=== PATIENT | male | born 1970 | race Caucasian/White ===

== ENCOUNTER 2023-08-28 18:58 | Inpatient (IN) | payer BC, SELFPAY ==
[2023-08-28] VITALS (11 sets, daily range): BP systolic 102–166; BP diastolic 68–93; BMI 24.3; BMI 23.9
--- NOTE | 2023-08-28 12:57 | ED.GENMED ---
History of Present Illness
<PEGGY Hernandez Jr. Last Filed: 08/31/23 11:22>
General
Chief Complaint: Withdrawal Symptoms
Source: patient, spouse and family
Exam Limitations: none
Time Seen by Provider: 08/28/23 12:53
Nursing documentation reviewed up to this point in time: agreed with
Travel History
Have you had any contact with someone who has COVID-19?: No
Do you have any symptoms of coronavirus? Fever > 100 degrees, chills, cough, shortness of breath, sore throat, loss of taste or smell, muscle aches, or headache?: No
History of Present Illness
History of Present Illness:
53-year-old male with past medical history of alcohol abuse and anxiety, previous GI bleed previous seizures related to alcohol withdrawal and DTs presenting to the emergency department today with concerns of alcohol withdrawal he has been
decreasing alcohol intake over the past few days has noticed nausea headache fatigue body aches over the past few days. Denies any specific chest pain shortness of breath
Past History
<PEGGY Hernandez Jr. Last Filed: 08/31/23 11:22>
Past History
ED Past Medical History: Seizures, Psychiatric and Other (Alcohol abuse, kidney stones, GI bleed)
ED Past Surgical History: None
Patient has exhibited threatening behavior?: No
PSI?: No
Social History
Tobacco: Non-smoker
Alcohol: Chronic alcoholic
Drug: None
Personal:
Living: with family
Family History
Family History: Negative Early CAD
Review of Systems
<PEGGY Hernandez Jr. Filed: 08/31/23 11:22>
Review of Systems
Allergies reviewed?: Yes
All Other Systems: ROS reviewed and negative except as documented in HPI and ROS
Phy Exam
<PEGGY Hernandez Jr. Last Filed: 08/31/23 11:22>
Physical Exam
Physical Exam:
GENERAL: Alert , seems mildly uncomfortable
EYE: pupils equal and reactive
NECK: Supple, no significant adenopathy.
ENT: o/p clr, mmm.
CARDIAC: Tachycardic rate regular
LUNGS: Clear breath sounds bilaterally, no acute respiratory distress, no wheezes/rales/rhonchi
ABDOMEN: Soft, without focal tenderness, no r/g, no cvat
NEUROLOGICAL: Alert and oriented, no focal neuro deficits
SKIN: Warm and dry, skin intact.
MUSCULOSKELETAL: No edema, well perfused.
PSYCH: Normal and appropriate interaction.
Scores
<Ramakrishna Farr Jr., PA-C - Last Filed: 08/31/23 11:22>
Withdrawal Assessment of Alcohol
Withdrawal Assessment Completed?: Yes
Nausea and Vomiting: Mild nausea with no vomiting
Tactile Disturbances: None
Tremor: No tremor
Auditory Disturbances: Not present
Paroxysmal Sweats: No sweat visible
Visual Disturbances: Not present
Anxiety: No anxiety, at ease
Headache, Fullness in Head: Moderate
Agitation: Normal activity
Orientation and clouding of sensorium: Oriented and can do serial additions
Total CIWA Score: 4
Alcohol Withdrawal Medication Recommendation: Equal to MSAS Score 0-4. Monitor & re-assess q2hrs, NO MEDICATION NEEDED
<Jasbir Marinelli MD - Last Filed: 08/28/23 18:00>
Withdrawal Assessment of Alcohol
Total CIWA Score: 4
Alcohol Withdrawal Medication Recommendation: Equal to MSAS Score 0-4. Monitor & re-assess q2hrs, NO MEDICATION NEEDED
Course
<Ramakrishna Farr Jr., PA-C - Last Filed: 08/31/23 11:22>
Orders/Labs/Results
Orders:
Orders
08/28/23 12:55
EKG [Electrocardiogram (*1)] Urgent
Reason for Study: Bradycardia / Tachycardia
EKG- Treatment ONCE
08/28/23 12:58
Bedside Glucose- Treatment ONCE
Urinalysis Reflex To Culture Urgent
Date Specimen was Collected: 08/29/23
Time Specimen was Collected: 05:30
Lorazepam [Ativan] 2 mg IV NOW STA
08/28/23 12:59
0.9% Sodium Chloride 1000 ml [Nss] 1,000 ml IV BOLUS
08/28/23 13:39
Complete Blood Count/With Diff Urgent
Lactic Acid Urgent
08/28/23 14:07
Lorazepam [Ativan] 1 mg IV NOW STA
08/28/23 14:16
Alcohol Urgent
Comprehensive Metabolic Panel Urgent
Lipase Urgent
Magnesium Urgent
Comment: ADD ON
Troponin I Urgent
08/28/23 14:20
Ondansetron Injectable [Zofran] 4 mg IV NOW STA
08/28/23 15:00
Dextrose 5%/0.9%Sodchl 1000 ml [D5/0.9% Sodium Chloride] 1,000 ml IV 1,000 mls/hr
08/28/23 15:16
Add On- LAB Urgent
Tests Added?: magnesium level
08/28/23 15:33
Thiamine Injection 200 mg .ROUTE .STK-MED ONE
08/28/23 15:41
Venous Blood Gas Urgent
%Oxygen/Room Air: 99
08/28/23 15:52
EKG [Electrocardiogram (*1)] Urgent
Reason for Study: Fatigue / Weakness
EKG- Treatment ONCE
Lorazepam [Ativan] 1 mg IV NOW STA
08/28/23 15:53
Lorazepam [Ativan] 2 mg .ROUTE .STK-MED ONE
08/28/23 15:55
CT Abd/pel Without Iv Or Oral Urgent
Comment:
Reason For Exam: right back pain
08/28/23 16:00
Thiamine Injection 500 mg 0.9% Sodium Chloride 250 ml [Nss] 250 ml IV ONCE
08/28/23 16:32
Bedside Glucose- Treatment ONCE
08/28/23 16:34
Ondansetron Injectable [Zofran] 0 mg .ROUTE .STK-MED ONE
08/28/23 16:39
Electrocardiogram (*1) Urgent
Reason for Study: Tachycardia
EKG- Treatment ONCE
08/28/23 16:46
Metoprolol [Lopressor] 5 mg IV NOW STA
08/28/23 17:00
FOLic ACID [Folvite] 1 mg 0.9% Sodium Chloride 50 ml [Nss] 50 ml IV ONCE
08/28/23 17:31
Pantoprazole [Protonix IV] 80 mg IV NOW STA
08/28/23 17:47
Admit/Transfer Patient As Directed
Co-Sign Provider:
Level of Care: Inpatient admission
Assign to:: IMU- Intermediate Care
Physician / Group: nahomy arreola
Diagnosis: alcohol withdrawal
Reason for Hospitalization: alcohol withdrawal
Expected length of stay greater than two midnights?: Yes
ELOS- Estimated Length of Stay in days: 3
I certify the patient meets the requirements for IP care: Yes
08/28/23 17:48
Code Status As Directed
Resuscitation Status: Full Code
08/28/23 19:42
Type+Screen Urgent
Lactic Acid Urgent
Troponin I Urgent
08/28/23 20:22
0.45% Sodium Chloride 1000 ml [0.45%NaCl] 1,000 ml Sodium Bicarbonate 75 meq IV 125 mls/hr
0.9% Sodium Chloride [Nss (Preservative Free)] See Protocol IV PRN PRN
FOLic ACID [Folvite] 1 mg 0.9% Sodium Chloride 50 ml [Nss] 50 ml IV DAILYPRN
Lorazepam [Ativan] 1 mg IV Q1HPRN PRN
Lorazepam [Ativan] 1 mg PO Q2HPRN PRN
Lorazepam [Ativan] 2 mg IV Q1HPRN PRN
Metoprolol Xl [Toprol Xl] 75 mg PO BID
Ondansetron Injectable [Zofran] 4 mg IV Q6HPRN PRN
08/28/23 20:22
Case Management Consult Once
Case Management Consult: Other
Comment: Substance abuse counseling
DIETARY CONSULT Routine
Reason for Consult: Nutrition support, possible refeeding guidelines
Urine Drug Abuse Screen Routine
Date Specimen was Collected: 08/29/23
Time Specimen was Collected: 05:31
Accucheck [Bedside Glucose Monitoring] As Directed
Frequency: tid
Activity As Directed
Activity Level: As Tolerated
MSAS SCORE As Directed
MSAS Score 0-4: Repeat MSAS every 2 hours until 0-4 for three consecutive assessments, then every 4 hours x 48
hours.
MSAS Score 5-7: For MILD withdrawl symptoms. Repeat MSAS and RASS every 2 hours
MSAS Score 8-11: For MODERATE withdrawal symptoms. Repeat MSAS and RASS every 1 hour. Consider ICU or IMU
level of care.
MSAS Score > 11: For SEVERE withdrawal symptoms. Repeat MSAS and RASS every 1 hour. Notify provider, consider
ICU level of care.
MSAS Additional Instructions: If no improvement or no decrease in score from severe to moderate within 12
hours, consult psychiatry
MSAS Notify Provider: Notify provider if patient requires more than 10 mg of Lorazepam in eight hour period.
Pneumatic Compression Sleeves As Directed
Type: Knee high
Vital Signs As Directed
Frequency: Per unit guidelines
DX Deep Vein Thrombosis Video Routine
08/28/23 22:10
Alcohol Urgent
B-Hydroxybutyrate Urgent
BMP [Basic Metabolic Panel] Routine
GGTP Urgent
H&H Q8H
Lactic Acid Q4H
Magnesium Urgent
PTT Urgent
Phosphorus Urgent
Prothrombin Time Urgent
08/29/23 00:00
Thiamine Injection 200 mg IV Q8
08/29/23 05:11
Basic Metabolic Panel IN AM
Complete Blood Count/No Diff IN AM
08/29/23 06:00
Occupational Therapy Consult [Ot Eval And Treat] IN AM
Physical Therapy Consult [Pt Eval And Treat] IN AM
Activity Level: As Tolerated
08/29/23 08:00
FOLic ACID [Folvite] 1 mg PO DAILY
Ferrous Sulfate [Feosol] 325 mg PO DAILY
08/30/23 04:01
Basic Metabolic Panel IN AM
Complete Blood Count/No Diff IN AM
08/31/23 11:00
DC Protocol for Telemetry ONCE
08/31/23 20:00
Thiamine HCl [Vitamin B1] 100 mg PO BID
Abnormal Lab Results
08/28/23 08/28/23 08/28/23
13:39 14:16 15:41
MCH 31.1 H pg
(27.0-31.0)
RDW 14.6 H %
(11.5-14.5)
Absolute Lymphs (auto) 0.6 L 10^3/uL
(1.2-3.4)
Neutrophils % 84.0 H %
(42.2-75.2)
Lymphocytes % 11.5 L %
(20.5-51.1)
VBG pH 7.30 L
(7.32-7.43)
VBG pCO2 30 L mmHg
(35-48)
VBG pO2 155 H mmHg
(30-50)
VBG HCO3 14.8 L mmol/L
(22-27)
Carbon Dioxide 11 L* mmol/L
(22-30)
Glucose 48 L* mg/dl
(70-99)
Lactic Acid 5.8 H* mmol/L
(0.7-2.0)
AST 91 H U/L
(17-59)
ALT 66 H U/L
(0-50)
POC Glucose 53 L* mg/dl
(70-99)
08/28/23
16:33
MCH
RDW
Absolute Lymphs (auto)
Neutrophils %
Lymphocytes %
VBG pH
VBG pCO2
VBG pO2
VBG HCO3
Carbon Dioxide
Glucose
Lactic Acid
AST
ALT
POC Glucose 250 H mg/dl
(70-99)
08/28/23 13:39
08/28/23 14:16
Vital Signs
Initial and Last Documented VS:
Initial Vital Signs
Temp Pulse Resp BP Pulse Ox
98.1 F 141 16 166/92 98
08/28/23 12:47 08/28/23 12:47 08/28/23 12:47 08/28/23 12:47 08/28/23 12:47
Last Documented Vital Signs
Temp Pulse Resp BP Pulse Ox
98.8 F 85 14 119/57 98
08/30/23 07:09 08/30/23 08:00 08/30/23 08:00 08/30/23 08:00 08/30/23 08:00
<Jasbir Marinelli MD - Last Filed: 08/28/23 18:00>
Orders/Labs/Results
Orders:
Orders
08/28/23 12:55
EKG [Electrocardiogram (*1)] Urgent
Reason for Study: Bradycardia / Tachycardia
EKG- Treatment ONCE
08/28/23 12:58
Bedside Glucose- Treatment ONCE
Urinalysis Reflex To Culture Urgent
Date Specimen was Collected: 08/29/23
Time Specimen was Collected: 05:30
Lorazepam [Ativan] 2 mg IV NOW STA
08/28/23 12:59
0.9% Sodium Chloride 1000 ml [Nss] 1,000 ml IV BOLUS
08/28/23 13:39
Complete Blood Count/With Diff Urgent
Lactic Acid Urgent
08/28/23 14:07
Lorazepam [Ativan] 1 mg IV NOW STA
08/28/23 14:16
Alcohol Urgent
Comprehensive Metabolic Panel Urgent
Lipase Urgent
Magnesium Urgent
Comment: ADD ON
Troponin I Urgent
08/28/23 14:20
Ondansetron Injectable [Zofran] 4 mg IV NOW STA
08/28/23 15:00
Dextrose 5%/0.9%Sodchl 1000 ml [D5/0.9% Sodium Chloride] 1,000 ml IV 1,000 mls/hr
08/28/23 15:16
Add On- LAB Urgent
Tests Added?: magnesium level
08/28/23 15:33
Thiamine Injection 200 mg .ROUTE .STK-MED ONE
08/28/23 15:41
Venous Blood Gas Urgent
%Oxygen/Room Air: 99
08/28/23 15:52
EKG [Electrocardiogram (*1)] Urgent
Reason for Study: Fatigue / Weakness
EKG- Treatment ONCE
Lorazepam [Ativan] 1 mg IV NOW STA
08/28/23 15:53
Lorazepam [Ativan] 2 mg .ROUTE .STK-MED ONE
08/28/23 15:55
CT Abd/pel Without Iv Or Oral Urgent
Comment:
Reason For Exam: right back pain
08/28/23 16:00
Thiamine Injection 500 mg 0.9% Sodium Chloride 250 ml [Nss] 250 ml IV ONCE
08/28/23 16:32
Bedside Glucose- Treatment ONCE
08/28/23 16:34
Ondansetron Injectable [Zofran] 0 mg .ROUTE .STK-MED ONE
08/28/23 16:39
Electrocardiogram (*1) Urgent
Reason for Study: Tachycardia
EKG- Treatment ONCE
08/28/23 16:46
Metoprolol [Lopressor] 5 mg IV NOW STA
08/28/23 17:00
FOLic ACID [Folvite] 1 mg 0.9% Sodium Chloride 50 ml [Nss] 50 ml IV ONCE
08/28/23 17:31
Pantoprazole [Protonix IV] 80 mg IV NOW STA
08/28/23 17:47
Admit/Transfer Patient As Directed
Co-Sign Provider:
Level of Care: Inpatient admission
Assign to:: IMU- Intermediate Care
Physician / Group: nahomy arreola
Diagnosis: alcohol withdrawal
Reason for Hospitalization: alcohol withdrawal
Expected length of stay greater than two midnights?: Yes
ELOS- Estimated Length of Stay in days: 3
I certify the patient meets the requirements for IP care: Yes
08/28/23 17:48
Code Status As Directed
Resuscitation Status: Full Code
08/28/23 19:42
Type+Screen Urgent
Lactic Acid Urgent
Troponin I Urgent
08/28/23 20:22
0.45% Sodium Chloride 1000 ml [0.45%NaCl] 1,000 ml Sodium Bicarbonate 75 meq IV 125 mls/hr
0.9% Sodium Chloride [Nss (Preservative Free)] See Protocol IV PRN PRN
FOLic ACID [Folvite] 1 mg 0.9% Sodium Chloride 50 ml [Nss] 50 ml IV DAILYPRN
Lorazepam [Ativan] 1 mg IV Q1HPRN PRN
Lorazepam [Ativan] 1 mg PO Q2HPRN PRN
Lorazepam [Ativan] 2 mg IV Q1HPRN PRN
Metoprolol Xl [Toprol Xl] 75 mg PO BID
Ondansetron Injectable [Zofran] 4 mg IV Q6HPRN PRN
08/28/23 20:22
Case Management Consult Once
Case Management Consult: Other
Comment: Substance abuse counseling
DIETARY CONSULT Routine
Reason for Consult: Nutrition support, possible refeeding guidelines
Urine Drug Abuse Screen Routine
Date Specimen was Collected: 08/29/23
Time Specimen was Collected: 05:31
Accucheck [Bedside Glucose Monitoring] As Directed
Frequency: tid
Activity As Directed
Activity Level: As Tolerated
MSAS SCORE As Directed
MSAS Score 0-4: Repeat MSAS every 2 hours until 0-4 for three consecutive assessments, then every 4 hours x 48
hours.
MSAS Score 5-7: For MILD withdrawl symptoms. Repeat MSAS and RASS every 2 hours
MSAS Score 8-11: For MODERATE withdrawal symptoms. Repeat MSAS and RASS every 1 hour. Consider ICU or IMU
level of care.
MSAS Score > 11: For SEVERE withdrawal symptoms. Repeat MSAS and RASS every 1 hour. Notify provider, consider
ICU level of care.
MSAS Additional Instructions: If no improvement or no decrease in score from severe to moderate within 12
hours, consult psychiatry
MSAS Notify Provider: Notify provider if patient requires more than 10 mg of Lorazepam in eight hour period.
Pneumatic Compression Sleeves As Directed
Type: Knee high
Vital Signs As Directed
Frequency: Per unit guidelines
DX Deep Vein Thrombosis Video Routine
08/28/23 22:10
Alcohol Urgent
B-Hydroxybutyrate Urgent
BMP [Basic Metabolic Panel] Routine
GGTP Urgent
H&H Q8H
Lactic Acid Q4H
Magnesium Urgent
PTT Urgent
Phosphorus Urgent
Prothrombin Time Urgent
08/29/23 00:00
Thiamine Injection 200 mg IV Q8
08/29/23 05:11
Basic Metabolic Panel IN AM
Complete Blood Count/No Diff IN AM
08/29/23 06:00
Occupational Therapy Consult [Ot Eval And Treat] IN AM
Physical Therapy Consult [Pt Eval And Treat] IN AM
Activity Level: As Tolerated
08/29/23 08:00
FOLic ACID [Folvite] 1 mg PO DAILY
Ferrous Sulfate [Feosol] 325 mg PO DAILY
08/30/23 04:01
Basic Metabolic Panel IN AM
Complete Blood Count/No Diff IN AM
08/31/23 11:00
DC Protocol for Telemetry ONCE
08/31/23 20:00
Thiamine HCl [Vitamin B1] 100 mg PO BID
Abnormal Lab Results
08/28/23 08/28/23 08/28/23
13:39 14:16 15:41
MCH 31.1 H pg
(27.0-31.0)
RDW 14.6 H %
(11.5-14.5)
Absolute Lymphs (auto) 0.6 L 10^3/uL
(1.2-3.4)
Neutrophils % 84.0 H %
(42.2-75.2)
Lymphocytes % 11.5 L %
(20.5-51.1)
VBG pH 7.30 L
(7.32-7.43)
VBG pCO2 30 L mmHg
(35-48)
VBG pO2 155 H mmHg
(30-50)
VBG HCO3 14.8 L mmol/L
(22-27)
Carbon Dioxide 11 L* mmol/L
(22-30)
Glucose 48 L* mg/dl
(70-99)
Lactic Acid 5.8 H* mmol/L
(0.7-2.0)
AST 91 H U/L
(17-59)
ALT 66 H U/L
(0-50)
POC Glucose 53 L* mg/dl
(70-99)
08/28/23
16:33
MCH
RDW
Absolute Lymphs (auto)
Neutrophils %
Lymphocytes %
VBG pH
VBG pCO2
VBG pO2
VBG HCO3
Carbon Dioxide
Glucose
Lactic Acid
AST
ALT
POC Glucose 250 H mg/dl
(70-99)
08/28/23 13:39
08/28/23 14:16
Vital Signs
Initial and Last Documented VS:
Initial Vital Signs
Temp Pulse Resp BP Pulse Ox
98.1 F 141 16 166/92 98
08/28/23 12:47 08/28/23 12:47 08/28/23 12:47 08/28/23 12:47 08/28/23 12:47
Last Documented Vital Signs
Temp Pulse Resp BP Pulse Ox
98.8 F 85 14 119/57 98
08/30/23 07:09 08/30/23 08:00 08/30/23 08:00 08/30/23 08:00 08/30/23 08:00
<Ramakrishna Farr Jr., PA-C - Last Filed: 08/31/23 11:22>
MDM/Problems Addressed
MDM/Problems Addressed:
53-year-old male presenting to the emergency department today with concerns of potential alcohol withdrawal he has been decreasing alcohol intake over the past few days and is a longtime drinker of at least a liter of vodka per day. Last drink was
this morning but it was much less than usual he claims. On arrival heart rate in the 140s he was given initial Ativan concerning his initial CIWA score was in the teens had some improvement of symptoms then given additional dose of 1 mg with a
total of 4 mg in the first 2 hours. Heart rate was improving claims that symptoms were improving as well. Heart rate still remained elevated in the 120s was found to be in acidosis with a low bicarb as well as high anion gap as well as a low
glucose level. Was given D5 thiamine as well as folate. Heart rate remained elevated. He declined that he stopped taking his metoprolol over the past few days concerning this he was given a dose of helio as this could be resulting in
tachycardia as well. Patient will be admitted for further monitoring closely
Patient episode of vomiting here just prior to being admitted that was dark in color. Patient was given a dose of Protonix. Initial hemoglobin of 15.4 type and screen was sent.
<Ramakrishna Farr Jr., PA-C - Last Filed: 08/31/23 11:22>
*Critical Care Note
Total Time (30-74mins, 75-104mins- exclusive of procedures): Not Applicable
ED Attending Note
<Ramakrishna Farr Jr., PA-C - Last Filed: 08/31/23 11:22>
-
Portions of this chart may have been created with voice recognition software.� Occasional wrong word or��sound alike� substitutions may have occurred due to the inherent limitations of voice recognition software.
<Jasbir Marinelli MD - Last Filed: 08/28/23 18:00>
ED Attending Note
Patient seen and examined by attending physician: Yes
ED Attending Note:
I have seen and evaluated the patient with a [id number] encounter. I have spoken to the advance practicer provider and involved in the medical history, the physical exam, medical decision making.
Evaluation and management service: agree unless noted differently below.
Results interpretation: agree unless noted differently below.
Focused HPI: 53-year-old male with history as above notable for alcohol abuse presents for evaluation of 'alcohol withdrawal.' Patient says that he has been trying to taper himself off of alcohol but feels that he is going into withdrawal. He says
he has a history of severe withdrawal with seizures and DTs. He says that he is starting to feel tremulous, achy, nausea with vomiting. He says he feels anxious and has a mild headache. He says the symptoms are consistent with prior alcohol
withdrawal. Mild nausea no vomiting. No abdominal pain. No falls or trauma. Last drink was earlier today but again, he says he has been tapering his amount of alcohol.
Physical exam: Awake and alert, oriented. Hypertensive and tachycardic. Mild tremor. Skin moist. Abdomen soft nontender. On cardiac auscultation he has tachycardia but regular rhythm. Lungs are clear to auscultation bilaterally.
Medical Decision Makin-year-old male presents with acute alcohol withdrawal. Basic labs sent off including a CBC which shows no acute abnormalities, CMP shows hyperglycemia (given IV dextrose) and metabolic acidosis concerning for alcohol
ketoacidosis. Given thiamine and folate, dextrose containing fluids. Given Ativan for withdrawal. Admitted for continued management.
Discharge Plan
Departure
Patient Disposition: Admit
Date of Disposition: 08/28/23
Time of Disposition: 17:01
Admit to: IMU
Admit to doctor: Pranay
Presentation/result/management discussed w/ accepting MD/DO: Hospitalist
Condition: Fair
Covid-19: Not Applicable
Discharge Problem:
Alcoholic ketoacidosis, Alcohol withdrawal, Tachycardia
Interventions
Interventions:
*Risk Screen - Suicide Last Done: 08/28/23 20:48
*General Assessment Last Done: 08/28/23 13:30
*Neglect/Abuse Screening Last Done: 08/28/23 13:30
ED- Fall Risk Assessment Last Done: 08/28/23 13:30
*ED COVID-19 Vaccine History Last Done: 08/28/23 22:12
*Nursing Disposition Last Done: 08/28/23 20:00
ED- Neurological Assessment Last Done: 08/28/23 13:30
ED-Psychological Assessment Last Done: 08/28/23 13:30
Discharge Date and Time
Discharge Date/Time: 08/28/23 20:32
[2023-08-28] MEDS: ATIVAN 2 MG IV (13:35)
[2023-08-28] MEDS: NSS 1000 IV (13:37)
[2023-08-28 13:53] LABS: % Basophils 0.7 % (0-2); % Eosinophils 0.5 % (0-6); % Immature Granulocytes 0.4 % (0-0.5); % Lymphocytes 11.5 % (20.5-51.1); % Monocytes 2.9 % (1.7-9.3); Absolute Lymphocytes 0.6 10^3/uL (1.2-3.4); Absolute Monocytes 0.2 10^3/uL (0.1-0.6); Absolute Neutrophils 4.7 10^3/uL (1.4-6.5); Hematocrit 44.6 % (39.0-52.0); Hemoglobin 15.4 g/dL (13.0-18.0); Mean Corp Hgb Conc. 34.5 g/dL (33.0-37.0); Mean Corpuscular Hgb 31.1 pg (27.0-31.0); Mean Corpuscular Volume 90.1 fL (80.0-94.0); Mean Platelet Volume 9.4 fL (7.4-10.4); Nucleated Red Blood Cells % 0 % (-); Platelet Count 212 10^3/uL (130-400); Red Blood Cell Count 4.95 10^6/uL (4.70-6.10); Red Cell Dist. Width 14.6 % (11.5-14.5); White Blood Cell Count 5.6 10^3/uL (4.8-10.8)
[2023-08-28 14:14] LABS: Lactic Acid 5.8 mmol/L (0.7-2.0)
[2023-08-28] MEDS: ATIVAN 1 MG IV ×2 (14:14→15:56)
[2023-08-28] MEDS: D5/0.9% SODIUM CHLORIDE 1000 IV (14:15)
[2023-08-28 14:19] LABS: Glucose - Point of Care 53 mg/dl (70-99)
--- NOTE | 2023-08-28 14:30 | EDRN ---
Elevated lactc of 5.8 reported t0 Prakash BURNS
[2023-08-28] MEDS: ZOFRAN 4 MG IV ×2 (14:36→21:21)
--- NOTE | 2023-08-28 14:38 | EDRN ---
Pt administered boxed lunch and is eating at this time.
[2023-08-28 14:41] LABS: ALT (SGPT) 66 U/L (0-50); AST (SGOT) 91 U/L (17-59); Albumin 4.9 g/dl (3.5-5.0); Alcohol 228 mg/dl; Alkaline Phosphatase 56 U/L (38-126); Blood Urea Nitrogen 12 mg/dl (9-20); Calcium 8.7 mg/dl (8.4-10.2); Carbon Dioxide 11 mmol/L (22-30); Chloride 102 mmol/L (98-107); Estimated Creatinine Clearance 116 ml/min; Glucose 48 mg/dl (70-99); Lipase 103 U/L (23-300); Potassium 4.1 mmol/L (3.5-5.1); Sodium 137 mmol/L (135-145); Total Bilirubin 1.1 mg/dl (0.2-1.3); Total Protein 7.8 g/dl (6.3-8.2); eGFR > 60.00
[2023-08-28 14:47] LABS: Troponin I < 0.012 ng/ml
[2023-08-28 15:49] LABS: Venous Blood Gas B.E. -10.3 mmol/L (-4 to +4); Venous Blood Gas HCO3 14.8 mmol/L (22-27); Venous Blood Gas O2 Sat % 99.8 %; Venous Blood Gas pCO2 30 mmHg (35-48); Venous Blood Gas pO2 155 mmHg (30-50)
[2023-08-28 15:50] LABS: Magnesium 1.9 mg/dl (1.6-2.3)
[2023-08-28 16:36] LABS: Glucose - Point of Care 250 mg/dl (70-99)
[2023-08-28] MEDS: THIAMINE INJECTION 255 MG IV (16:42)
[2023-08-28] MEDS: LOPRESSOR 5 MG IV (17:02)
--- NOTE | 2023-08-28 17:17 | EDRN ---
This RN attempted IV access x2 and Ashley RN attempted x1 w/out success. Prakash BURNS in room attempting US IV access as pt needs a second access.
--- NOTE | 2023-08-28 17:20 | HPS.HSE ---
Family Physician
-
Family Physician: * NONE
Chief Complaint
-
generalized weakness
History of Present Illness
53-year-old male with past medical history of alcohol abuse and anxiety, previous GI bleed presented to us with generalized weakness, fatigue, body aches for past few days.stated poor appetite. not eating for past few days. denied LOPEZ, dizzy. denied
fever, chills, chest pain, sob.denied abdominal pain, n,v, d. denied dysuria or hematuria.
upon my evaluation patient coughing and vomited dark emesis. admitting with BLANKA. he is alcoholic. he last drink was this morning. he drinks vodka, not sure how much he drank.
Medical History
Past Medical History
Past Medical History: Reports Other
Additional Past Medical History:
alcohol use disorder, seizures, skin cancer status post resection, tachycardia
Past Surgical History: Reports None
Social History
Tobacco: Non-smoker
Alcohol: Daily
Drug: None
Family History
Family History: Not pertinent
Allergies / Home Medications
Allergies reflects when Allergies were last updated in [employer].
Home Medications with original date entered in [employer]
Allergy/Medication List:
Allergies
Allergy/AdvReac Type Severity Reaction Status Date / Time
pollen extracts Allergy SEASONAL-NASAL Verified 06/04/23 12:23
SYMPTOMS
Home Medications
cholecalciferol (vitamin D3) 25 mcg (1,000 unit) chewable tablet 25 mcg PO DAILY Supplement 02/19/23
multivitamin 1 tab PO DAILY Supplement 06/04/23
metoprolol succinate 50 mg tablet,extended release 24 hr 75 mg PO BID Blood pressure 30 days #120 tabs 06/08/23
ferrous sulfate 325 mg (65 mg iron) tablet (iron) 325 mg PO DAILY Supplement 07/07/23
vitamin B complex 1 cap PO DAILY Supplement 07/07/23
pantoprazole 40 mg tablet,delayed release 40 mg PO DAILY #30 tabs 07/08/23
Review of Systems
-
Constitutional: Reports No Symptoms and Fatigue
EENT: Reports No Symptoms
Respiratory: Reports No Symptoms
Cardiac: Reports No Symptoms
Abdomen/GI: Reports No Symptoms
: Reports No Symptoms
Musculoskeletal: Reports No Symptoms
Skin: Reports No Symptoms
Neurological: Reports No Symptoms and Weakness
Endocrine: Reports No Symptoms
Hematologic/Lymphatic: Reports No Symptoms
Psych: Reports No Symptoms
Physical Exam
Vital Signs
Vital Signs
Temp Pulse Resp BP Pulse Ox
98.1 F 106 23 139/83 94
08/28/23 12:47 08/28/23 17:15 08/28/23 17:15 08/28/23 17:02 08/28/23 17:15
Physical Exam
General: Well Developed, Well Nourished and No Apparent Distress
HEENT: NormoCephalic, Moist mucous membranes and Atraumatic
Respiratory: Clear
Cardiac: S1/S2 and Regular Rhythm; No Murmur or Rub
GI: Soft, Non Tender, Non Distended and Normal Bowel Sounds; No Organomegaly
Rectal: Deferred by Provider
Musculoskeletal: No Clubbing, No Cyanosis and No Edema
Skin: No Rash
Neuro: AO x 3 and Nonfocal/grossly intact
Psych: Calm
Laboratory Results
-
08/28/23 13:39
08/28/23 14:16
Laboratory Results
Lactic Acid 5.8 mmol/L (0.7-2.0) H* 08/28/23 13:39
Total Bilirubin 1.1 mg/dl (0.2-1.3) 08/28/23 14:16
AST 91 U/L (17-59) H 08/28/23 14:16
ALT 66 U/L (0-50) H 08/28/23 14:16
Alkaline Phosphatase 56 U/L (38-126) 08/28/23 14:16
Troponin I < 0.012 ng/ml 08/28/23 14:16
Lipase 103 U/L (23-300) 08/28/23 14:16
Data Reviewed
-
Lab Data: Labs Reviewed by me
Impression/Plan
-
#alcohol withdrawal/alcoholic ketoacidosis
-co2 11, lactic 5.8
-1/2 ns with bicarb 125cc/hr
-monitor BMP at 2300
-trend lactic
-alcohol protocol
-monitor MSAS score
# Acute on chronic tachycardia exacerbated by alcohol withdrawal
-Continue metoprolol
# Hypoglycemia secondary to decreased p.o. intake
-monitor blood sugar
#dark vomit likely possible GI bleed
-will trend hgb
-IV PPI bid
-ctm
#GERD
-PPI continued
Full code
DVT prophylaxis scd
Regular diet
[2023-08-28] MEDS: PROTONIX IV 80 MG IV (17:45)
--- NOTE | 2023-08-28 17:52 | EDRN ---
Marian FUR COMBER in to see pt as this RN was going in to check IV pump that was beeping and pt was vomiting coffee ground emesis and covered in it all down his front and lower face at 1735. Pt was cleansed and Prakash Farr ordered protonix which has not been
administered.
[2023-08-28] MEDS: FOLVITE 50.2000000000000028 MG IV (18:02)
--- NOTE | 2023-08-28 18:36 | W.PN.UPDATE ---
Update Note
Progress Note Update
Presents with weakness fatigue and poor oral intake with nausea.
Patient with known history of alcohol use disorder. He was admitted to [facility] and June 2023 for alcohol-related problems.
He drinks every day but for the last 10 days he has been drinking 1 pint of vodka every day which is more than normal. He does claim that he had a prior alcohol withdrawal issues. He has seek help in the past and has not worked out.
Now has been feeling weak tired. He has no appetite. He is nauseous. Threw up once in the ER. Denies any abdominal pain.
No fever or chills. No chest pain. No shortness of breath. No cough or sore throat.
Denies any blood in the stools.
Patient noted to have lactic acidosis and suspicion for alcohol ketoacidosis. His alcohol levels are still more than 200 when checked this morning in the ER.
His current sinus tachycardia. He is known to have hypertension on beta-helio which he did not take. Suspect the tachycardia may be related to alcoholic ketoacidosis itself. Continue monitor on telemetry. He is on his beta-helio.
Regarding alcoholic ketoacidosis will start on half-normal saline with bicarb and repeat a BMP in midnight.
Regarding GI symptoms suspect alcohol-related gastritis, erosions. No abdominal pain or tenderness. Abdomen is benign. Start on IV PPI and antiemetics for symptomatic treatment.
Currently without any alcohol withdrawal symptoms but high likely. Follow very closely on alcohol withdrawal protocol.
He was strongly advised to consider again rehab programs for his alcohol use disorder.
--- NOTE | 2023-08-28 19:00 | EDRN ---
Pt had not voided during the time this RN cared for him.
--- NOTE | 2023-08-28 19:17 | EDRN ---
This RN concerned about pt admit to telemetry and attempted to contact via TT at 18:45 Marian Shaikh NP and Dr. Aguayo w/ no response. This RN called the floor to TT covering hospitalist for polysomnographic technician and TT'd Magalie Best Do at 19:06. Elena MOLD CLOSER on night
shift upgraded admit to IMU. Pt had already been assigned a bed. Pt is on MSAS and in withdrawal as well as vomiting coffee ground emesis.
[2023-08-28 19:43] LABS: Glucose - Point of Care 115 mg/dl (70-99)
[2023-08-28 20:02] LABS: APTT 25.4 Sec (23.4-35.0); INR 0.98; PT 12.8 Sec (11.4-14.6)
[2023-08-28 20:03] LABS: Lactic Acid 3.6 mmol/L (0.7-2.0)
[2023-08-28 20:17] LABS: Troponin I < 0.012 ng/ml
[2023-08-28] MEDS: SODIUM BICARBONATE 1075 MEQ IV (21:15)
[2023-08-28] MEDS: TOPROL XL 75 MG PO (21:21)
[2023-08-28] MEDS: PROTONIX 100 IV (21:39)
--- NOTE | 2023-08-28 21:59 | PTCARENOTE ---
Patient arrived to room 3345 around 2029. Drowsy but oriented x4. Oriented to room and use of call charles. Dentures and belongings at bedside. CHG wiped down. Skin intact. Tele applied showing NSR/ST heart rate 90-110s. MSAS 4. Bed alarm set for
safety. Call charles within reach.
[2023-08-28 22:16] LABS: Hematocrit 35.8 % (39.0-52.0); Hemoglobin 12.7 g/dL (13.0-18.0)
[2023-08-28 22:26] LABS: INR 1.03; PT 13.3 Sec (11.4-14.6)
[2023-08-28 22:27] LABS: APTT 25.7 Sec (23.4-35.0)
[2023-08-28 22:31] LABS: Lactic Acid 1.8 mmol/L (0.7-2.0)
[2023-08-28 22:33] LABS: Alcohol 44 mg/dl; GGTP 46 U/L (15-73); Magnesium 1.9 mg/dl (1.6-2.3); Phosphorus 2.1 mg/dl (2.5-4.5)
[2023-08-28 22:34] LABS: Blood Urea Nitrogen 10 mg/dl (9-20); Carbon Dioxide 20 mmol/L (22-30); Chloride 105 mmol/L (98-107); Estimated Creatinine Clearance > 125 ml/min; Glucose 74 mg/dl (70-99); Potassium 3.8 mmol/L (3.5-5.1); Sodium 135 mmol/L (135-145); eGFR > 60.00
[2023-08-28 22:40] LABS: B-Hydroxybutyrate 3.02 mmol/L (0.02-0.27)
[2023-08-29] VITALS (15 sets, daily range): BP systolic 107–139; BP diastolic 51–111; PULSE 106–110; O2SAT 94–96; BMI 24.4
[2023-08-29 00:07] LABS: Glucose - Point of Care 54 mg/dl (70-99)
[2023-08-29 00:32] LABS: Glucose - Point of Care 53 mg/dl (70-99)
[2023-08-29] MEDS: DEXTROSE 50% SYRINGE 12.5 GRAMS IV ×2 (00:48→06:09)
[2023-08-29] MEDS: THIAMINE INJECTION 200 MG IV ×3 (00:48→15:48)
[2023-08-29 01:36] LABS: Glucose - Point of Care 113 mg/dl (70-99)
[2023-08-29 03:58] LABS: Glucose - Point of Care 99 mg/dl (70-99)
[2023-08-29 05:36] LABS: Hematocrit 33.5 % (39.0-52.0); Hemoglobin 11.7 g/dL (13.0-18.0); Mean Corp Hgb Conc. 34.9 g/dL (33.0-37.0); Mean Corpuscular Hgb 30.1 pg (27.0-31.0); Mean Corpuscular Volume 86.1 fL (80.0-94.0); Mean Platelet Volume 9.8 fL (7.4-10.4); Platelet Count 174 10^3/uL (130-400); Red Blood Cell Count 3.89 10^6/uL (4.70-6.10); Red Cell Dist. Width 14.2 % (11.5-14.5); White Blood Cell Count 7.9 10^3/uL (4.8-10.8)
[2023-08-29] MEDS: SODIUM BICARBONATE 1075 MEQ IV (05:38)
[2023-08-29 05:53] LABS: Blood Urea Nitrogen 12 mg/dl (9-20); Calcium 7.9 mg/dl (8.4-10.2); Carbon Dioxide 24 mmol/L (22-30); Chloride 104 mmol/L (98-107); Estimated Creatinine Clearance > 125 ml/min; Glucose 82 mg/dl (70-99); Potassium 3.7 mmol/L (3.5-5.1); Sodium 134 mmol/L (135-145); eGFR > 60.00
[2023-08-29] MEDS: PROTONIX 100 IV ×2 (06:09→15:48)
[2023-08-29 06:10] LABS: Glucose - Point of Care 71 mg/dl (70-99)
[2023-08-29] MEDS: D5/0.9% SODIUM CHLORIDE IV ×5 (06:27→06:28)
[2023-08-29 06:28] LABS: Urine Albumin Trace (Neg - Trace); Urine Bilirubin Negative (Negative); Urine Character Clear (Clear); Urine Color Yellow; Urine Glucose 2+ (Negative); Urine Ketone 3+ (Negative); Urine Leukocyte Negative (Negative); Urine Nitrite Negative (Negative); Urine Occult Blood Negative (Negative); Urine Urobilinogen 1+ (Neg - 1+)
[2023-08-29 06:48] LABS: Glucose - Point of Care 115 mg/dl (70-99)
[2023-08-29 06:52] LABS: Amphetamines Negative (Negative); Barbiturates Negative (Negative); Benzodiazepines Positive (Negative); Buprenorphine Negative (Negative); Cocaine Negative (Negative); Marijuana Negative (Negative); Methadone Negative (Negative); Methamphetamines Negative (Negative); Opiates Negative (Negative); Phencyclidine Negative (Negative); Tricyclic Antidepressants Negative (Negative)
[2023-08-29] MEDS: TOPROL XL 75 MG PO ×2 (07:26→20:45)
[2023-08-29] MEDS: FOLVITE 1 MG PO (07:26)
[2023-08-29] MEDS: FEOSOL 325 MG PO (07:26)
[2023-08-29 07:33] LABS: Fentanyl, Urine Negative (Negative)
--- NOTE | 2023-08-29 07:38 | PTCARENOTE ---
pt aaox3. states no pain or sob. does state he is anxious when asked but says it is his normal level. explained msas protocol and told him if it gets worse to call RN. room air breath sounds clear. ivf and protonix running as ordered.
--- NOTE | 2023-08-29 08:23 | W.PN.HOSP.TC ---
Today's Communication/Plan
-
see plan above
Assessment / Plan
Assessment / Plan
Generalized weakness along with nausea-suspected secondary to metabolic disturbances from alcohol ketoacidosis. Patient received fluids with bicarb. Acidosis resolved. Tolerating diet. Feeling improved. Will get a PT eval to see how he is on
his feet. Hold furhther bicarb fluids.
Nausea and vomiting-suspect alcohol related gastritis-improved. Tolerating full liquids. Abdomen benign. Continue with PPI. Advance diet. Hold further fluids.
Alcohol use disorder-patient with daily use of alcohol. He also had a prior history of withdrawal but denies any seizures. This morning he is alert oriented without tremors or feeling anxious. Apart from tachycardia no other obvious overt
sympathetic activity.
Discussed about alcohol rehab-patient does not want to go inpatient rehab. Wants to go outpatient. He is under the impression that he is finished with alcohol withdrawal phase as he is feeling better now. Told him he came in with high alcohol
level and so he may not see [facility]RIST[facility] yet ; withdrawal can happen within the first 3 days anytime. So far has not used Ativan. He wants to go home with outpatient rehab referrals. We planned on benzo taper and if he develops any anxiety or tremors to
come back to the hospital for withdrawal syndrome management.
Consult case management for outpatient rehab referrals/[facility] referral
Anticipated Discharge: Today
Subjective/Interval History
-
Date of Service: August 29, 2023
No further nausea or vomiting. Tolerating full liquid diet. No abdominal pain.
Feels in general improved. May be stronger but has not gotten out of bed yet.
Objective Data
-
Labs:
Laboratory Results
08/28/23 08/29/23
22:10 05:11
WBC 7.9
Hgb 12.7 L 11.7 L
Hct 35.8 L 33.5 L
Plt Count 174
PT 13.3
INR 1.03
APTT 25.7
Sodium 135 134 L
Potassium 3.8 3.7
Chloride 105 104
Carbon Dioxide 20 L 24
BUN 10 12
Creatinine 0.7 0.7
Glucose 74 82
Calcium 8.0 L 7.9 L
Vital Signs:
Vital Signs
Temp Pulse Resp BP Pulse Ox
99.1 F 120 17 120/83 97
08/29/23 08:19 08/29/23 07:26 08/29/23 07:15 08/29/23 07:26 08/29/23 07:15
I&O
08/28/23 08/29/23 08/30/23
06:59 06:59 06:59
Intake Total 974 / 974
Output Total 200 / 200
Balance 774 / 774
Review of Systems
-
Constitutional: Denies Fever
EENT: Denies Sore Throat
Respiratory: Denies Cough or Trouble Breathing
Cardiac: Denies Chest Pain
Neuro: Denies Dizzy or Tremors
Physical Exam
-
General: No Apparent Distress
HEENT: Moist Mucous Membranes
Respiratory: Clear to Auscultation
Cardiac: Regular Rhythm, S1/S2 and Tachycardic
GI: Soft, Nontender, Nondistended and Normal Bowel Sounds
Neuro: AO x 3 and Tremors
Psych: Calm; Negative Confused, Agitated or Anxious
Data Reviewed
-
Labs: Labs Reviewed by me
--- NOTE | 2023-08-29 09:07 | CON.GI ---
Addendum entered and electronically signed by Dave Steinberg MD 08/29/23 15:34:
I saw and examined the patient.
The VISITING PROFESSOR or PA's note was reviewed and I agree with the note.
Comment: 53-year-old male past medical history of alcohol abuse complicated by seizure, multiple rehab visits presenting with coffee-ground emesis. On review with patient he has not had any hematemesis only coffee grounds. Initially had regular
emesis followed by coffee-ground. He had an episode in emergency room as well. He currently feels well.
Reviewing records, he has had multiple upper endoscopies with grade D esophagitis most recently December 2022. He does not have cirrhosis based on recent imaging, blood work with normal platelets, normal coags. No signs of cirrhosis on prior upper
endoscopies as well.
Most likely I suspect this is again his esophagitis. CT also showed esophagitis.
Recommendations:
- Clear liquid diet
- PPI gtt transition to bid tomorrow before breakfast and before dinner at discharge
- carafate before lunch and bedtime
- Trend Hb
- If does well overnight no further vomiting, stable hb ok to advance diet in am and discharge tomorrow. No need for EGD at this time unless clinical status changes.
- I sent msg to welfare eligibility worker to schedule an outpatient appt unfortuantely we have tried in past and failed. I d/w pt importance of follow up egd in 8 weeks to ensure he does not have Phillips's; also due for CRCS. Outpatient eval of fatty liver.
- I stressed to pt importance of EtOH abstinence.
Original Note:
Consultation
-
Date/Time Consultation Requested: 08/28/23 @ 20:22
Date/Time Consultation Performed: 08/29/23 @ 09:15
Requesting Provider: FRANKY Camacho
Performing Provider: FRANKY Abrams; Dr. Richa Steinberg
Reason for Consultation: hematemesis, alcohol withdrawal
Medical History
Chief Complaint / HPI
Chief Complaint: generalized weakness
History of Present Illness:
The patient is a 53-year-old male with a past medical history significant for alcohol abuse, seizures, LA grade D esophagitis, history of upper GI bleed, hiatal hernia, kidney stone, anxiety, hypertension, who presented to the emergency room
complaint of generalized weakness. We are being asked to evaluate for hematemesis with history of alcohol abuse. Upon review of prior records, the patient was seen last year with similar presentation with reports of hematemesis. He does have a
history of excessive alcohol use and at that time with concern for upper GI bleed. He underwent endoscopy on 12/19/2022 which showed LA grade D esophagitis with a clot overlying ulceration at the GE junction. At that time was advised to continue on
Protonix and have a repeat endoscopy to assess for healing. He was evaluated and treated for alcohol withdrawal as well with history of withdrawal seizures in the past. He was seen again March again with recurrent coffee-ground emesis thought
to be secondary to his history of severe esophagitis and alcohol use/alcoholic gastritis. He again was placed on Protonix twice daily and advised to use Carafate for 2 weeks as well. Due to his alcohol withdrawal symptoms and metabolic acidosis he
repeat EGD was deferred to outpatient setting. He now presents again with generalized weakness with poor appetite over the past several days. Upon evaluation in the emergency room he did have an episode of dark emesis. He notes acute onset of
nausea with vomiting yesterday around noon. The first episode was clear but subsequent episodes were black in color. He denies any bright red blood. He notes he has continued to drink despite knowing he needs to stop. He reports drinking 1 pint
of vodka daily with his last drink yesterday prior to his arrival to the ER. He notes he has been in rehab 4 times and has tried AA in the past but has been unsuccessful in quitting drinking. He reports this presentation was not as severe as prior
as he came immediately to the ER. He notes he was taking Protonix daily, but denies any other antacids. He did denies use of NSAIDs regularly. He is not on any blood thinners and denies use of aspirin. He otherwise denies any chest pain,
shortness of breath, dizziness, lightheadedness, syncope, fevers, chills, dysphagia, odynophagia, abdominal pain, constipation, or diarrhea. He denies any family history of GI cancers. Routine labs on admission showed hemoglobin 15.4, platelets
212,000, INR 1.03, sodium 137, potassium 4.1, sodium HCO3 11, BUN 12, creatinine 0.8, glucose 48, lactic acid 5.8, total bilirubin 1.1, AST 91, ALT 66, alk phos 56, troponin negative x 2, magnesium 1.9, lipase 103. Alcohol level 44. Drug screen
positive for benzodiazepines. CT of the abdomen and pelvis was done without contrast showing distal esophageal wall thickening and inflammation compatible with esophagitis, small hiatal hernia, severe hepatic steatosis, and gallstones (other
findings as noted below).
Past Medical History
Past Medical History: HTN, Psychiatric (Anxiety) and Other (Seizure secondary to alcohol withdrawal, alcohol abuse, LA grade D esophagitis, history of upper GI bleed, kidney stones, hiatal hernia)
Past Surgical History: Other (Skin cancer lesion extraction from scalp, oral surgery)
Social History
Tobacco: Non-Smoker
Alcohol: Chronic Alcoholic
Drug: None
Personal:
Living: With Family
Family History
Family History: Reviewed & Not Pertinent and Cancer (Father-lymphoma and melanoma, mother -breast cancer)
Allergies / Home Medications
Allergy/AdvReac Type Severity Reaction Status Date / Time
pollen extracts Allergy SEASONAL-NASAL Verified 06/04/23 12:23
SYMPTOMS
Medication Instructions Recorded
cholecalciferol (vitamin D3) 25 25 mcg PO DAILY Supplement 02/19/23
mcg (1,000 unit) chewable tablet
multivitamin 1 tab PO DAILY Supplement 06/04/23
metoprolol succinate 50 mg 75 mg PO BID Blood pressure 30 06/08/23
tablet,extended release 24 hr days #120 tabs
ferrous sulfate 325 mg (65 mg 325 mg PO DAILY Supplement 07/07/23
iron) tablet (iron)
vitamin B complex 1 cap PO DAILY Supplement 07/07/23
pantoprazole 40 mg tablet,delayed 40 mg PO DAILY #30 tabs 07/08/23
release
Review of Systems
-
History Source: Patient
Constitutional: Reports No Symptoms
EENT: Reports No Symptoms
Respiratory: Reports No Symptoms
Cardiac: Reports No Symptoms
Abdomen/GI: Reports Nausea, Vomiting and Other (Coffee-ground emesis)
: Reports No Symptoms
Musculoskeletal: Reports No Symptoms
Skin: Reports No Symptoms
Neurological: Reports No Symptoms
Vital Signs
Temp Pulse Resp BP Pulse Ox
99.1 F 120 17 120/83 97
08/29/23 08:19 08/29/23 07:26 08/29/23 07:15 08/29/23 07:26 08/29/23 07:15
Physical Exam
Exam
General: Well Developed, Well Nourished and Comfortable
HEENT: Normocephalic, Anicteric and Atraumatic
Respiratory: Clear
Cardiac: S1/S2 and Regular Rhythm (Sinus tachycardia on court monitor)
Breast: Deferred by me
GI: Soft, Non Tender, Non Distended and Normal Bowel Sounds
Musculoskeletal: No Edema
Skin: Warm and Dry
Neuro: Awake, Alert, Oriented and Other (Slightly tremulous)
Psych: Calm
Results
WBC 7.9 10^3/uL (4.8-10.8) 08/29/23 05:11
Hgb 11.7 g/dL (13.0-18.0) L 08/29/23 05:11
Hct 33.5 % (39.0-52.0) L 08/29/23 05:11
MCV 86.1 fL (80.0-94.0) 08/29/23 05:11
Plt Count 174 10^3/uL (130-400) 08/29/23 05:11
Absolute Neuts (auto) 4.7 10^3/uL (1.4-6.5) 08/28/23 13:39
PT 13.3 Sec (11.4-14.6) 08/28/23 22:10
INR 1.03 08/28/23 22:10
APTT 25.7 Sec (23.4-35.0) 08/28/23 22:10
Sodium 134 mmol/L (135-145) L 08/29/23 05:11
Potassium 3.7 mmol/L (3.5-5.1) 08/29/23 05:11
Chloride 104 mmol/L (98-107) 08/29/23 05:11
Carbon Dioxide 24 mmol/L (22-30) 08/29/23 05:11
BUN 12 mg/dl (9-20) 08/29/23 05:11
Creatinine 0.7 mg/dL (0.7-1.3) 08/29/23 05:11
Calcium 7.9 mg/dl (8.4-10.2) L 08/29/23 05:11
Total Bilirubin 1.1 mg/dl (0.2-1.3) 08/28/23 14:16
AST 91 U/L (17-59) H 08/28/23 14:16
ALT 66 U/L (0-50) H 08/28/23 14:16
Alkaline Phosphatase 56 U/L (38-126) 08/28/23 14:16
Lipase 103 U/L (23-300) 08/28/23 14:16
Diagnostic Image Results:
08/28/2023 CT A/P W/o contrast: IMPRESSION:
1. Distal esophageal wall thickening and inflammation compatible with esophagitis.
2. Small hiatal hernia.
3. Punctate right nephrolithiasis.
4. 3 mm proximal right ureteral calculus, which is nonobstructive given the absence of proximal hydroureter or hydronephrosis.
5. Cholelithiasis.
6. Colonic diverticulosis.
7. Severe hepatic steatosis.
Prior GI Procedures:
EGD: 12/19/2022 Dr. Newton: LA Grade D reflux esophagitis with no bleeding. Clot overlying ulceration at GE jxn, oozed with suctioning off clot. Medium-sized hiatal hernia. Normal examined duodenum. No specimens collected.
EGD:� 06/03/2022, Dr. Sandoval: The nasopharynx and oropharynx showed ulceration from vomiting. LA Grade D esophagitis with no bleeding. Likely� related to vomiting. Medium-sized hiatal hernia. No gross lesions in the entire stomach. Normal examined
duodenum. No specimens collected.
01/24/2021, Dr. Sandoval: Normal examined duodenum. Hematin (altered blood/eubpox-vbmucx-fiax material) in the gastric body. Fluid aspiration performed. Erythematous mucosa in the antrum. Medium-sized hiatal hernia. LA Grade D esophagitis.
07/25/2011, Dr. Grover: Hiatus hernia. Non-obstructing Schatzki ring. Normal stomach. Nodular mucosa in the duodenal bulb. This was biopsied. Normal 2nd part of the duodenum.
Colonoscopy: none
Assessment / Plan
-
The patient is a 53-year-old male with a past medical history significant for alcohol abuse, seizures, LA grade D esophagitis, history of upper GI bleed, hiatal hernia, kidney stone, anxiety, hypertension, who presented to the emergency room
complaint of generalized weakness. We are being asked to evaluate for hematemesis with history of alcohol abuse. He has recurrent hospitalizations for coffee-ground emesis likely secondary to severe esophagitis due to ongoing alcohol abuse. Last
endoscopy done last December showing LA grade D esophagitis with GE junction ulcer with clot. Presented again with coffee-ground emesis and nausea which has resolved. He is tolerating clear liquid diet this morning. Mild drop of hemoglobin but
overall stable. Currently denies any signs of withdrawal. CT imaging showing likely esophagitis with no other concerning acute findings (see report above).
Problem list:
-Coffee-ground emesis
-hx LA grade D esophagitis with history of UGI bleeding
-alcohol abuse
-Mild normocytic anemia
-Hypertension
-History of kidney stones
-Hiatal hernia
-Anxiety
Recommendations:
-Etiology of coffee-ground emesis likely secondary to recurrent severe esophagitis with ongoing alcohol use versus peptic ulcer versus other. No evidence of cirrhosis on imaging or suggested with current labs and very unlikely to be esophageal
varices with EGD last year without evidence
-At this time would continue PPI drip
-Clear liquid diet. If no recurrent vomiting today can advance diet to regular diet tomorrow and likely discharge with outpatient endoscopy
-Reinforced that he will need a repeat endoscopy for reevaluation of his esophagitis which can be done outpatient if he remains stable
-Will add Carafate twice daily, which he can take for 2 weeks
-Reinforced the need to abstain from alcohol going forward
-Avoid NSAIDs
-Monitor H&H
-PRN antiemetics
-Alcohol withdrawal protocol as per IMU
-Will follow
Data Reviewed
-
Old Records: Reviewed
-
-
Thank you for consultation and allowing me to participate in the patient's care. Please call the contract serviceman GI physician during the after hours with any questions or concerns.
[2023-08-29 11:54] LABS: Glucose - Point of Care 150 mg/dl (70-99)
[2023-08-29] MEDS: CARAFATE SUSPENSION 1 GM PO ×2 (12:05→20:45)
--- NOTE | 2023-08-29 16:22 | CM ---
Patient with Hx alcohol use disorder with Dx Nausea and vomiting-suspect alcohol related gastritis. MSAS per nursing.
Spoke with patient who resides in a 2 story house with his and 2 children.
The patient has been independent in ADLs and ambulation.
The patient has no DME or prior VN.
PCP - Gerardo Sheets
Pharmacy - [facility]
The patient was offered [facility] for Etoh program or resources and he agreed.
Spoke with [facility] Ibarra; she spoke with the patient and he agrees to outpatient Etoh resources.
Plan home with Outpatient Etoh resources.
[2023-08-29 18:17] LABS: Glucose - Point of Care 118 mg/dl (70-99)
[2023-08-29 19:01] LABS: Hemoglobin 11.9 g/dL (13.0-18.0)
[2023-08-29 21:31] LABS: Hepatitis B Surface Antigen Negative (Negative)
[2023-08-29 21:39] LABS: HIV Combo Negative (Negative)
[2023-08-29 21:48] LABS: Hepatitis C Antibody Negative (Negative)
[2023-08-30] VITALS: BP 100/44
[2023-08-30 00:08] LABS: Glucose - Point of Care 88 mg/dl (70-99)
[2023-08-30] MEDS: THIAMINE INJECTION 200 MG IV ×2 (00:10→07:59)
[2023-08-30] MEDS: PROTONIX 100 IV (01:25)
[2023-08-30 02:00] VITALS: BP 86/55
[2023-08-30 03:24] VITALS: BP 106/70
[2023-08-30 04:01] VITALS: BP 138/127
[2023-08-30 04:40] LABS: Hematocrit 35.8 % (39.0-52.0); Hemoglobin 12.6 g/dL (13.0-18.0); Mean Corp Hgb Conc. 35.2 g/dL (33.0-37.0); Mean Corpuscular Hgb 31.3 pg (27.0-31.0); Mean Corpuscular Volume 88.8 fL (80.0-94.0); Mean Platelet Volume 10.2 fL (7.4-10.4); Platelet Count 161 10^3/uL (130-400); Red Blood Cell Count 4.03 10^6/uL (4.70-6.10); Red Cell Dist. Width 13.9 % (11.5-14.5); White Blood Cell Count 5.1 10^3/uL (4.8-10.8)
[2023-08-30 05:22] LABS: Blood Urea Nitrogen 7 mg/dl (9-20); Calcium 8.5 mg/dl (8.4-10.2); Carbon Dioxide 27 mmol/L (22-30); Chloride 99 mmol/L (98-107); Estimated Creatinine Clearance > 125 ml/min; Glucose 95 mg/dl (70-99); Potassium 3.4 mmol/L (3.5-5.1); Sodium 134 mmol/L (135-145); eGFR > 60.00
[2023-08-30 06:19] VITALS: BP 120/67
[2023-08-30 06:24] LABS: Glucose - Point of Care 93 mg/dl (70-99)
[2023-08-30] MEDS: KCL 40 MEQ PO (06:38)
[2023-08-30] MEDS: TOPROL XL 75 MG PO (07:59)
[2023-08-30] MEDS: FOLVITE 1 MG PO (07:59)
[2023-08-30 08:00] VITALS: BP 119/57
--- NOTE | 2023-08-30 08:29 | PTCARENOTE ---
pt aaox3. states no pain or sob. pt states he does not feel anxious. room air. nsr seen on monitor. slight hand tremor noted.
--- NOTE | 2023-08-30 08:35 | W.PN.HOSP.TC ---
Today's Communication/Plan
-
DC
Assessment / Plan
Assessment / Plan
Generalized weakness along with nausea-suspected secondary to metabolic disturbances from alcohol ketoacidosis. Patient received fluids with bicarb. Acidosis resolved. Tolerating diet. Feeling improved. Seen by PT-no needs noted.
Nausea and vomiting with coffee-ground emesis-suspect alcohol related gastritis-improved. Patient has history of esophagitis which could be playing a role as well. . Abdomen benign. Tolerating diet. Continue with PPI. GI input noted. Advised
to follow-up with GI as an outpatient. Hemoglobin stable.
Alcohol use disorder-patient with daily use of alcohol. He also had a prior history of withdrawal but denies any seizures. Improved sympathetic activity. Less tachycardic. No tremors. No anxiety. No obvious clinical signs of withdrawal.
Discussed about alcohol rehab-patient does not want to go inpatient rehab. Wants to go outpatient. He wants to go home with outpatient rehab referrals. [facility] referral done. Since he is planning to quit alcohol will send him home on as needed
Ativan if needed. He is only day 2 without alcohol. He was advised alcohol withdrawal can happen up to 7 days from the last drink. We planned on benzo taper and if he develops any anxiety or tremors to come back to the hospital for withdrawal
syndrome management.
HTN -cw BB -he wants his prescription filled as he is running low.
More than 30 minutes spent in discharge including
Final examination of the patient
Summarizing hospital stay
Instructions for continuing care to all relevant caregivers
Preparation of discharge records, prescriptions, and referral forms
Total time spent (in minutes): 32
Anticipated Discharge: Today
Subjective/Interval History
-
Date of Service: August 30, 2023
Feeling well. No tremors. Not requiring any Ativan.
No nausea vomiting. Tolerating diet.
Objective Data
-
Labs:
Laboratory Results
08/30/23
04:01
WBC 5.1
Hgb 12.6 L
Hct 35.8 L
Plt Count 161
Sodium 134 L
Potassium 3.4 L
Chloride 99
Carbon Dioxide 27
BUN 7 L
Creatinine 0.7
Glucose 95
Calcium 8.5
Vital Signs:
Vital Signs
Temp Pulse Resp BP Pulse Ox
98.8 F 85 14 119/57 98
08/30/23 07:09 08/30/23 08:00 08/30/23 08:00 08/30/23 08:00 08/30/23 08:00
I&O
08/29/23 08/30/23 08/31/23
06:59 06:59 06:59
Intake Total 974 / 974 120 / 120
Output Total 200 / 200 1000 / 1000
Balance 774 / 774 -880 / -880
Review of Systems
-
Constitutional: Denies Fever
EENT: Denies Sore Throat
Respiratory: Denies Cough
Neuro: Denies Dizzy
Physical Exam
-
General: No Apparent Distress
HEENT: Moist Mucous Membranes
Respiratory: Clear to Auscultation
Cardiac: Regular Rhythm and S1/S2
GI: Soft and Nontender
Neuro: AO x 3; Negative Tremors
Psych: Calm; Negative Confused or Agitated
Data Reviewed
-
Labs: Labs Reviewed by me
--- NOTE | 2023-08-30 08:43 | W.DS.TRANS ---
DC Summary - Parts Classifier
-
Discharge Instructions:
Discharge Diagnosis/Procedures Nausea vomiting with coffee-ground emesis
suspect esophagitis versus gastritis.
Generalized weakness suspected secondary to
alcohol ketoacidosis which resolved. Alcohol
use disorder without withdrawals during this
admission.
Diet 2 Gram Sodium
Activity As tolerated
Driving Restrictions As prior to admission
Bathing Restrictions None
Instructions:
Stand-Alone Forms:
Changes to Home Medications: Yes
Discharge Medications:
DC Medications w/original date entered in [employer]
cholecalciferol (vitamin D3) 25 mcg (1,000 unit) chewable tablet 25 mcg PO DAILY Supplement 02/19/23
multivitamin 1 tab PO DAILY Supplement 06/04/23
vitamin B complex 1 cap PO DAILY Supplement 07/07/23
folic acid 1 mg tablet 1 mg PO DAILY #30 tabs 08/30/23
metoprolol succinate 50 mg tablet,extended release 24 hr 75 mg PO BID Blood pressure 30 days #60 tabs 08/30/23
pantoprazole 40 mg tablet,delayed release 40 mg PO BID #60 tabs 08/30/23
sucralfate 100 mg/mL oral suspension 1 gm PO BID@1200,2200 #60 mL 08/30/23
thiamine HCl (vitamin B1) 100 mg tablet 100 mg PO DAILY #30 tabs 08/30/23
Home Medication Changes
New medication-Carafate, Protonix twice a day, thiamine, folic acid
Pending Results: No
--- NOTE | 2023-08-30 08:43 | W.DCSUMMARY ---
Discharge Summary
Discharge Data
Date of Admission: 08/28/23
Date of Discharge: 08/30/23
-
Pending Results: No
Hospital Course
Primary diagnosis:
Generalized weakness secondary to alcohol ketoacidosis
Alcohol use disorder
Nausea vomiting with coffee-ground emesis
History of esophagitis
Secondary diagnosis:
Primary hypertension
Hospital course:
Patient is present with generalized weakness, nausea and vomiting. He has not been eating much. Coming into the hospital because of GI symptoms.
He has alcohol use disorder and has been drinking a pint of vodka for the last 10 days which is more than his usual. While he was here in the ER he had nausea and coffee-ground emesis.
He was noted to be in ketoacidosis felt alcohol ketoacidosis. He was supported with fluids with bicarb with resolution of his acidosis and improvement in his weakness.
Regarding coffee-ground emesis that there was no drop in blood count. I initially thought probably gastritis but he does have history of esophagitis. Was seen by GI. He had issues with coffee-ground emesis in the past. He had endoscopies with
grade D esophagitis most recently being December 2022. He was continued on PPI but also put on Carafate. He was advised that he needs to follow-up with repeat endoscopy in 8 weeks to ensure he does not have Phillips's.
Consult on board Dave Fuentes
Discharge Plan
-
Patient Disposition: Home (Routine Discharge)
Discharge Diagnosis/Procedures: Nausea vomiting with coffee-ground emesis suspect esophagitis versus gastritis. Generalized weakness suspected secondary to alcohol ketoacidosis which resolved. Alcohol use disorder without withdrawals during this
admission.
Diet: 2 Gram Sodium
Activity: As tolerated
Driving Restrictions: As prior to admission
Bathing Restrictions: None
Referrals:
NONE,* [Family Provider] -
Dave Steinberg MD [Active] - in four to six weeks
Prescriptions:
New
sucralfate 100 mg/mL Suspension
1 gm PO BID@1200,2200 Qty: 60 0RF
folic acid 1 mg Tablet
1 mg PO DAILY Qty: 30 0RF
Rx Instructions:
for a month
thiamine HCl (vitamin B1) 100 mg Tablet
100 mg PO DAILY Qty: 30 0RF
Rx Instructions:
for a month
Continued
cholecalciferol (vitamin D3) 25 mcg (1,000 unit) Tablet,Chewable
25 mcg PO DAILY
multivitamin Tablet
1 tab PO DAILY
vitamin B complex Capsule
1 cap PO DAILY
metoprolol succinate 50 mg Tablet Extended Release 24 Hr
75 mg PO BID 30 Days Qty: 60 0RF
Changed
pantoprazole 40 mg Tablet,Delayed Release (Dr/Ec)
40 mg PO BID Qty: 60 0RF
Discontinued
ferrous sulfate [iron] 325 mg (65 mg iron) Tablet
325 mg PO DAILY
Discharge Orders:
Discharge Patient (As Directed); Ordered 08/30/23
Ordered By: Aleksey Aguayo
--- NOTE | 2023-08-30 08:55 | W.PN.GI.CBS2 ---
Today's Communication / Plan
-
discharge, gi outpatient follow up
Assessment / Plan
-
�53-year-old male past medical history of alcohol abuse complicated by seizure, multiple rehab visits presenting with coffee-ground emesis.� On review� with patient he has not had any hematemesis only coffee grounds.� Initially had regular emesis
followed by coffee-ground.� He had an episode in emergency room as well.� He currently feels well.
Reviewing records, he has had multiple upper endoscopies with grade D esophagitis most recently December 2022.� He does not have cirrhosis based on recent imaging, blood work with normal platelets, normal coags.� No signs of cirrhosis on prior upper
endoscopies as well.
Most likely I suspect this is again his esophagitis. CT also showed esophagitis.
Doing well today, stable Hb
Recommendations:
- Low residue diet
- Recommend PPI bid tomorrow before breakfast and before dinner at discharge
- Recommend carafate before lunch and bedtime x10 days
- I sent msg to front office attendant to schedule an outpatient appt unfortuantely we have tried in past and failed.� I d/w pt importance of follow up egd in 8 weeks to ensure he does not have Phillips's; also due for CRCS.� Outpatient eval of fatty liver.
- I stressed to pt importance of EtOH abstinence.
- Plan d/c today, GI will sign off
Subjective
Subjective
Date of Service: August 30, 2023
No further n/v, feels well
Objective
Data Reviewed
Laboratory Data:
Laboratory Results
08/30/23 04:01
08/30/23 04:01
Laboratory Results
PT 13.3 Sec (11.4-14.6) 08/28/23 22:10
INR 1.03 08/28/23 22:10
APTT 25.7 Sec (23.4-35.0) 08/28/23 22:10
Phosphorus 2.1 mg/dl (2.5-4.5) L 08/28/23 22:10
Magnesium 1.9 mg/dl (1.6-2.3) 08/28/23 22:10
Total Bilirubin 1.1 mg/dl (0.2-1.3) 08/28/23 14:16
AST 91 U/L (17-59) H 08/28/23 14:16
ALT 66 U/L (0-50) H 08/28/23 14:16
Alkaline Phosphatase 56 U/L (38-126) 08/28/23 14:16
Lipase 103 U/L (23-300) 08/28/23 14:16
Vital Signs and I&O:
Vital Signs
Temp Pulse Resp BP Pulse Ox
98.8 F 85 14 119/57 98
08/30/23 07:09 08/30/23 08:00 08/30/23 08:00 08/30/23 08:00 08/30/23 08:00
I&O
08/29/23 08/30/23 08/31/23
06:59 06:59 06:59
Intake Total 974 / 974 120 / 120
Output Total 200 / 200 1000 / 1000
Balance 774 / 774 -880 / -880
Physical Exam
Physical Exam
GI: Non Distended and Non Tender
--- NOTE | 2023-08-30 10:25 | PTCARENOTE ---
pt had breakfast with no issues of nausea or vomiting.
== END 2023-08-30 10:25 | disposition home or self-care (01) | DRG 897 ==
LOC: IMU 18:58
PROVIDERS: Emergency Medicine; Nurse Practitioner Family; Physician Assistant; Registered Nurse; ADMITTING PHYSICIAN Internal Medicine; CONSULT PHYSICIAN Internal Medicine Gastroenterology; EMERGENCY PHYSICIAN Emergency Medicine
DX: F10.239 Alcohol dependence with withdrawal, unspecified (principal); E87.29 Other acidosis; I10 Essential (primary) hypertension
CPT/HCPCS: 74176; 80048; 80053; 80306; 80307; 81003; 82010; 82077; 82805; 82962; 82977; 83605; 83690; 83735; 84100; 84484; 85014; 85018; 85025; 85027; 85610; 85730; 86803; 86850; 86900; 86901; 87340; 87389; 93005; 96361; 96365; 96375; 96376; 97163; 97166; 99285; J7030

== ENCOUNTER 2023-09-17 17:00 | Emergency (ER) | payer BC, SELFPAY ==
[2023-09-17 17:09] VITALS: BP 147/88
[2023-09-17 17:36] LABS: % Basophils 1.4 % (0-2); % Immature Granulocytes 0.2 % (0-0.5); % Lymphocytes 26.8 % (20.5-51.1); % Monocytes 3.2 % (1.7-9.3); % Neutrophils 68.4 % (42.2-75.2); Absolute Basophils 0.1 10^3/uL (0-0.2); Absolute Lymphocytes 2.2 10^3/uL (1.2-3.4); Absolute Monocytes 0.3 10^3/uL (0.1-0.6); Absolute Neutrophils 5.5 10^3/uL (1.4-6.5); Hematocrit 42.6 % (39.0-52.0); Hemoglobin 14.7 g/dL (13.0-18.0); Mean Corp Hgb Conc. 34.5 g/dL (33.0-37.0); Mean Corpuscular Hgb 30.7 pg (27.0-31.0); Mean Corpuscular Volume 88.9 fL (80.0-94.0); Mean Platelet Volume 9.1 fL (7.4-10.4); Nucleated Red Blood Cells % 0 % (-); Platelet Count 333 10^3/uL (130-400); Red Blood Cell Count 4.79 10^6/uL (4.70-6.10); Red Cell Dist. Width 14.2 % (11.5-14.5)
[2023-09-17 17:52] LABS: ALT (SGPT) 30 U/L (0-50); AST (SGOT) 37 U/L (17-59); Alcohol 244 mg/dl; Alkaline Phosphatase 67 U/L (38-126); Blood Urea Nitrogen 12 mg/dl (9-20); Calcium 9.1 mg/dl (8.4-10.2); Carbon Dioxide 11 mmol/L (22-30); Chloride 107 mmol/L (98-107); Glucose 58 mg/dl (70-99); Potassium 4.5 mmol/L (3.5-5.1); Sodium 139 mmol/L (135-145); Total Bilirubin 1.1 mg/dl (0.2-1.3); eGFR > 60.00
--- NOTE | 2023-09-17 19:08 | ED.GENMED ---
History of Present Illness
General
Chief Complaint: Withdrawal Symptoms
Source: patient
Exam Limitations: none
Time Seen by Provider: 09/17/23 18:55
Travel History
Have you had any contact with someone who has COVID-19?: No
Do you have any symptoms of coronavirus? Fever > 100 degrees, chills, cough, shortness of breath, sore throat, loss of taste or smell, muscle aches, or headache?: No
History of Present Illness
History of Present Illness:
This is a 53 year old male that comes in c/o withdraw from alcohol. States that he has been through this before and he knows the symptoms. States that he is dizzy, nauseated, and his muscle feels weak. States that he has no appetite. Patient states
that he has been admitted here before for this but he doesn't want inpatient. States that he has a slight headache, lightheaded and the nausea. Denies any fever, chills, chest pain, SOB, abd pain, vomiting, diarrhea, urinary burning.
Past History
Past History
ED Past Medical History: Cancer (Skin CA), Seizures (From alcohol withdraw), Psychiatric (Anxiety) and Other (Alcohol abuse, kidney stones, GI bleed, Gastritis, )
ED Past Surgical History: Other (Oral surgery)
Patient has exhibited threatening behavior?: No
PSI?: No
Social History
Tobacco: Non-smoker
Alcohol: Chronic alcoholic
Drug: None
Personal:
Living: with family
Family History
Family History: Negative Early CAD
Phy Exam
General Physical Exam
General Presentation: no apparent distress
General age: appears stated age
General Skin: warm and dry
General Habitus: normal
General Mental: alert
General Hydration: appears well hydrated
ENT Exam
ENT Exam: TM's normal, pharynx normal and neck supple
Eye Exam
Eye Exam: EOMI
Cardiovascular Exam
Cardiovascular Exam: no edema, no murmur, normal peripheral pulses and tachycardia
Pulmonary Exam
Pulmonary Exam: lungs clear, no respiratory distress, no rales, chest non tender, no crackles, no rhonchi, no wheezing and no cough
Gastrointestinal Exam
Gastrointestinal Exam: normal bowel sounds, non tender, soft, no organomegaly, no pulsatile mass and non distended
Musculoskeletal Exam
Musculoskeletal Exam: full ROM and no edema
Skin Exam
Skin Exam: normal color, warm/dry, no rash and no petechia
Psychiatric Exam
Psychiatric Exam: normal mood/affect
Course
Orders/Labs/Results
Orders:
Orders
09/17/23 17:14
EKG [Electrocardiogram (*1)] Urgent
Reason for Study: Tachycardia
09/17/23 17:15
EKG- Treatment ONCE
09/17/23 17:21
Alcohol Urgent
Complete Blood Count/With Diff Urgent
Comprehensive Metabolic Panel Urgent
Lipase Urgent
Comment: ADD ON
09/17/23 18:57
Add On- LAB Urgent
Tests Added?: Lipase
09/17/23 19:05
0.9% Sodium Chloride 1000 ml [Nss] 1,000 ml IV BOLUS
Dextrose 50%-Water [Dextrose 50% Syringe] 12.5 grams IV NOW STA
Sodium Bicarbonate 50 meq IV NOW STA
09/17/23 19:07
Ondansetron Injectable [Zofran] 4 mg IV NOW STA
Pantoprazole [Protonix IV] 40 mg IV NOW STA
09/17/23 20:00
0.9% Sodium Chloride 1000 ml [Nss] 1,000 ml Mvi, Adult [Multivitamin] 10 ml Thiamine Injection 100 mg IV 250 mls/hr
09/17/23 20:19
Venous Blood Gas Urgent
%Oxygen/Room Air: Room air
09/17/23 22:17
Basic Metabolic Panel Urgent
09/18/23 00:04
Lorazepam [Ativan] 1 mg PO NOW STA
Abnormal Lab Results
09/17/23 09/17/23 09/17/23
17:21 20:19 22:17
VBG pCO2 32 L mmHg
(35-48)
VBG pO2 189 H mmHg
(30-50)
VBG HCO3 18.1 L mmol/L
(22-27)
Carbon Dioxide 11 L* mmol/L 18 L mmol/L
(22-30) (22-30)
Glucose 58 L mg/dl
(70-99)
Calcium 8.1 L mg/dl
(8.4-10.2)
09/17/23 17:21
09/17/23 22:17
Carbon dioxide very low, Hypoglycemia. Alcohol 244, Carbon dioxide has improved, Glucose within normal range. Calcium very slightly low. VPG's Negative , Lipase normal at 115
Vital Signs
Initial and Last Documented VS:
Initial Vital Signs
Temp Pulse Resp BP Pulse Ox
98.7 F 139 18 147/88 98
09/17/23 17:09 09/17/23 17:09 09/17/23 17:09 09/17/23 17:09 09/17/23 17:09
Last Documented Vital Signs
Temp Pulse Resp BP Pulse Ox
98.2 F 118 20 147/88 98
09/18/23 02:26 09/18/23 02:26 09/18/23 02:26 09/17/23 17:09 09/18/23 02:26
MDM/Problems Addressed
Differential Diagnosis Includes:
Alcohol abuse and withdraw
MDM/Problems Addressed:
This is a 53 year old male that comes in with c/o alcohol withdraw symptoms. State that he has been drinking a pint of Vodka daily. States that he has been here before with withdraw and he is aware of the symptoms. States tht he is dizzy, nauseated,
muscles feel weak. States that he has no appetite. Patient states that he is not interested in In patient treatment.
Will get labs and medicated as needed. Will give IV fluids and Banana bag.
Back into see patient. Patient has not had any nausea, vomiting, sweating or withdraw symptoms here. Blood work is improved and will discharge patient home after IV fluids are completed. Will sent a Prescription for a Few Ativan to his pharmacy to
help with further with withdraw symptoms.
Chronic conditions affecting care:
Chronic alcohol abuse.
Acute Exacerbation and/or Progression of Chronic Illness:
Chronic alcohol abuse
*Pulse Oximetry
Patient hypoxic: no
*EKG
Interpreted by ED Provider?: Yes
Heart Rate: 118
Rate: tachycardiac
Rhythm: sinus tachycardia
[place]: normal axis
Interval: normal interval
QRS Pattern: normal QRS
Ischemia: no ischemia
*Linotype Operator Interpretation
Rate: tachycardiac
Heart Rate: 120
Rhythm: sinus tachycardia
*Critical Care Note
Total Time (30-74mins, 75-104mins- exclusive of procedures): Not Applicable
ED Attending Note
-
Portions of this chart may have been created with voice recognition software.� Occasional wrong word or��sound alike� substitutions may have occurred due to the inherent limitations of voice recognition software.
Discharge Plan
Departure
Patient Disposition: Home (Routine Discharge)
Date of Disposition: 09/17/23
Time of Disposition: 23:56
Patient with high blood pressure during this ER visit?: Yes
Condition: Good
Covid-19: Not Applicable
Discharge Problem:
Alcohol abuse
Instructions: Alcohol Withdrawal (DC), Alcohol Use Disorder (DC), BLOOD PRESSURE
Prescriptions:
New
lorazepam [Ativan] 1 mg tablet
1 mg PO BID PRN (Reason: alcohol withdrawal) Qty: 6 0RF
ondansetron 4 mg tablet,disintegrating
4 mg PO Q8H PRN (Reason: nausea and vomiting) Qty: 10 0RF
No Action
cholecalciferol (vitamin D3) 25 mcg (1,000 unit) Tablet,Chewable
25 mcg PO DAILY
multivitamin Tablet
1 tab PO DAILY
vitamin B complex Capsule
1 cap PO DAILY
pantoprazole 40 mg Tablet,Delayed Release (Dr/Ec)
40 mg PO BID Qty: 60 0RF
cetirizine [All Day Allergy Relief(cetir)] 10 mg Tablet
10 mg PO DAILY
ferrous sulfate-vitamin C 39-75 mg Tablet
1 tab PO DAILY
metoprolol succinate 50 mg tablet extended release 24 hr
50 mg PO BID
Referrals:
UNKNOWN - PT DOES,NOT KNOW [Unknown Provider] -
Activity Restrictions/Additional Instructions:
As discussed, your alcohol level was 244. You have been given IV fluids and fluids with Electrolytes. Please increase your water intake to 8-8oz glasses daily. A prescription has been sent to your Pharmacy for Ativan to help with any withdraw
symptoms. Along with this is a prescription for Zofran to help wit any nausea, vomiting. Please follow up with the family doctor. Please get back into AA. IF YOU HAVE ANY OTHER CONCERNS PLEASE RETURN TO THE EMERGENCY ROOM.
Interventions
Interventions:
*Risk Screen - Suicide Last Done: 09/17/23 17:11
*General Assessment Last Done: 09/17/23 17:11
*Neglect/Abuse Screening Last Done: 09/17/23 17:11
ED- Fall Risk Assessment Last Done: 09/17/23 19:41
*ED COVID-19 Vaccine History Last Done: 09/18/23 02:26
*Nursing Disposition Last Done: 09/18/23 02:26
ED- Neurological Assessment Last Done: 09/17/23 19:41
ED-Psychological Assessment Last Done: 09/17/23 19:41
Discharge Date and Time
Discharge Date/Time: 09/18/23 02:28
[2023-09-17] MEDS: NSS 1000 IV (19:26)
[2023-09-17] MEDS: PROTONIX IV 40 MG IV (19:27)
[2023-09-17] MEDS: ZOFRAN 4 MG IV (19:27)
[2023-09-17] MEDS: SODIUM BICARBONATE 50 MEQ IV (19:27)
[2023-09-17 19:31] LABS: Lipase 115 U/L (23-300)
[2023-09-17] MEDS: DEXTROSE 50% SYRINGE 12.5 GRAMS IV (19:31)
[2023-09-17 19:51] VITALS: BMI 26.1
[2023-09-17] MEDS: MULTIVITAMIN 1011 ML IV (20:21)
[2023-09-17] MEDS: MULTIVITAMIN 1011 MG IV (20:21)
[2023-09-17 20:24] LABS: Venous Blood Gas B.E. -6.3 mmol/L (-4 to +4); Venous Blood Gas HCO3 18.1 mmol/L (22-27); Venous Blood Gas pCO2 32 mmHg (35-48); Venous Blood Gas pH 7.36 (7.32-7.43); Venous Blood Gas pO2 189 mmHg (30-50)
[2023-09-17 22:40] LABS: Blood Urea Nitrogen 11 mg/dl (9-20); Calcium 8.1 mg/dl (8.4-10.2); Carbon Dioxide 18 mmol/L (22-30); Chloride 107 mmol/L (98-107); Estimated Creatinine Clearance > 125 ml/min; Glucose 86 mg/dl (70-99); Potassium 4.7 mmol/L (3.5-5.1); Sodium 136 mmol/L (135-145); eGFR > 60.00
[2023-09-18] MEDS: ATIVAN 1 MG PO (02:25)
== END 2023-09-18 02:28 | disposition home or self-care (01) ==
LOC: EMR 17:00
PROVIDERS: Clinical Nurse Specialist Family Health; Emergency Medicine; EMERGENCY PHYSICIAN Student in an Organized Health Care Education/Training Program; FAMILY PHYSICIAN Family Medicine
DX: F10.10 Alcohol abuse, uncomplicated (principal); R03.0 Elevated blood-pressure reading, without diagnosis of hypertension; Y90.8 Blood alcohol level of 240 mg/100 ml or more
CPT/HCPCS: 99284; 96374; 96375 ×2; 96361 ×4; 80048; 80053; 82077; 82805; 83690; 85025; 93005

== ENCOUNTER 2023-09-30 21:47 | Inpatient (IN) | payer BC, SELFPAY ==
[2023-09-30 19:03] VITALS: BP 124/91; BMI 25.8
--- NOTE | 2023-09-30 19:21 | ED.GENMED ---
History of Present Illness
General
Chief Complaint: Alcohol Problem
Time Seen by Provider: 09/30/23 19:20
Travel History
Have you had any contact with someone who has COVID-19?: No
Do you have any symptoms of coronavirus? Fever > 100 degrees, chills, cough, shortness of breath, sore throat, loss of taste or smell, muscle aches, or headache?: No
History of Present Illness
History of Present Illness:
HPI: Patient presents wanting help with obtaining alcohol rehab. He was seen in our ED about 2 weeks ago and was admitted here about 1 month ago with alcoholic ketoacidosis. He feels that he is about to go into severe withdrawal.
EXAM:
GENERAL: Well appearing in no distress
HEENT: Moist oral mucosa
CARDIOVASCULAR: No murmurs, normal heart rate, regular rhythm, No chest wall tenderness
PULMONARY: No respiratory distress, breath sounds are clear and equal
ABDOMEN: Soft with no peritoneal signs, no tenderness
NEUROLOGIC: Excellent strength all extremities, no coordination deficits
PSYCHIATRIC: Appropriate mental status, normal insight and judgement
EXTREMITIES: Nontender, no edema, moves all extremities equally
SKIN: No rash, no lesions
TIME OF INITIAL ENCOUNTER: 7:30 PM
NUMBER AND COMPLEXITY OF PROBLEMS ADDRESSED AT THE ENCOUNTER
� Chronic conditions affecting care: Has had seizures in the past, gastritis, alcoholism
� Acute Exacerbation and/or Progression of Chronic Illness: This is an acute exacerbation of chronic problem�alcohol
� Differential Diagnosis includes: Alcohol withdrawal, alcoholism, electrolyte abnormality, Stephanie ketoacidosis
AMOUNT AND/OR COMPLEXITY OF DATA TO BE REVIEWED AND ANALYZED
� I performed an independent evaluation of and my interpretation is:
EKG:
CT:
X-rays:
Laboratory Studies: White count normal at 9, hemoglobin 14.1, VBG shows pH of 7.3, pCO2 of 29, bicarb 11
Other:
� Review of other/old records: The patient was admitted here last month with alcoholic ketoacidosis
� Clinical information was obtained by an independent historian: None needed
� Prescriptions/Medications Considered but not given:
� Further testing considered but not performed:
RISK OF COMPLICATIONS AND/OR MORBIDITY OR MORTALITY OF PATIENT MANAGEMENT
� Social determinants of health affecting care: Lives at home, history of alcoholism
� Discussion with other providers: [facility] but feels that there is too much going on medically to place him tonight. Hospitalist for admission and [facility] will reassess tomorrow and hopefully can place. Hospitalist for admission
at 8:40 PM
� Escalation of care including admission/observation vs risk of discharge considered: The patient's bicarb is only 11 and he has ongoing nausea. He was given IV fluids. His pH is slightly low at 7.3. I am concerned for
alcoholic ketoacidosis. He was given Zofran.
Past History
Past History
ED Past Medical History: Cancer (Skin CA), Seizures (From alcohol withdraw), Psychiatric (Anxiety) and Other (Alcohol abuse, kidney stones, GI bleed, Gastritis, )
ED Past Surgical History: Other (Oral surgery)
Patient has exhibited threatening behavior?: No
PSI?: No
Social History
Tobacco: Non-smoker
Alcohol: Chronic alcoholic
Drug: None
Personal:
Living: with family
Family History
Family History: Negative Early CAD
Phy Exam
Physical Exam
Physical Exam:
See HPI
Scores
Withdrawal Assessment of Alcohol
Withdrawal Assessment Completed?: Not applicable
Course
Orders/Labs/Results
Orders:
Orders
09/30/23 19:23
0.9% Sodium Chloride 1000 ml [Nss] 1,000 ml IV BOLUS
09/30/23 19:41
Alcohol Urgent
Complete Blood Count/With Diff Urgent
Comprehensive Metabolic Panel Urgent
Lipase Urgent
Venous Blood Gas Urgent
%Oxygen/Room Air: ra
09/30/23 20:28
Ondansetron Injectable [Zofran] 4 mg IV NOW STA
09/30/23 20:38
Add On- LAB Urgent
Tests Added?: alcohol
0.9% Sodium Chloride 1000 ml [Nss] 1,000 ml IV BOLUS
Abnormal Lab Results
09/30/23
19:41
RBC 4.59 L 10^6/uL
(4.70-6.10)
RDW 15.2 H %
(11.5-14.5)
Absolute Neuts (auto) 8.1 H 10^3/uL
(1.4-6.5)
Absolute Lymphs (auto) 0.6 L 10^3/uL
(1.2-3.4)
Neutrophils % 89.0 H %
(42.2-75.2)
Lymphocytes % 6.3 L %
(20.5-51.1)
VBG pH 7.30 L
(7.32-7.43)
VBG pCO2 29 L mmHg
(35-48)
VBG pO2 178 H mmHg
(30-50)
VBG HCO3 14.3 L mmol/L
(22-27)
Carbon Dioxide 11 L* mmol/L
(22-30)
Glucose 52 L* mg/dl
(70-99)
Albumin 5.2 H g/dl
(3.5-5.0)
09/30/23 19:41
09/30/23 19:41
Vital Signs
Initial and Last Documented VS:
Initial Vital Signs
Temp Pulse Resp BP Pulse Ox
98.2 F 124 16 124/91 99
09/30/23 19:03 09/30/23 19:03 09/30/23 19:03 09/30/23 19:03 09/30/23 19:03
Last Documented Vital Signs
Temp Pulse Resp BP Pulse Ox
98.2 F 124 16 124/91 99
09/30/23 19:03 09/30/23 19:03 09/30/23 19:03 09/30/23 19:03 09/30/23 19:03
*Critical Care Note
Total Time (30-74mins, 75-104mins- exclusive of procedures): Not Applicable
ED Attending Note
-
Portions of this chart may have been created with voice recognition software.� Occasional wrong word or��sound alike� substitutions may have occurred due to the inherent limitations of voice recognition software.
Discharge Plan
Departure
Patient Disposition: Admit
Date of Disposition: 09/30/23
Time of Disposition: 20:36
Presentation/result/management discussed w/ accepting MD/DO: Hospitalist
Discharge Problem:
Alcoholic ketoacidosis
Prescriptions:
No Action
cholecalciferol (vitamin D3) 25 mcg (1,000 unit) Tablet,Chewable
25 mcg PO DAILY
multivitamin Tablet
1 tab PO DAILY
vitamin B complex Capsule
1 cap PO DAILY
pantoprazole 40 mg Tablet,Delayed Release (Dr/Ec)
40 mg PO BID Qty: 60 0RF
cetirizine [All Day Allergy Relief(cetir)] 10 mg Tablet
10 mg PO DAILY
ferrous sulfate-vitamin C 39-75 mg Tablet
1 tab PO DAILY
metoprolol succinate 50 mg tablet extended release 24 hr
50 mg PO BID
lorazepam [Ativan] 1 mg tablet
1 mg PO BID PRN (Reason: alcohol withdrawal) Qty: 6 0RF
ondansetron 4 mg tablet,disintegrating
4 mg PO Q8H PRN (Reason: nausea and vomiting) Qty: 10 0RF
Referrals:
Gerardo Sheets MD [Family Provider] -
Interventions
Interventions:
*Risk Screen - Suicide Last Done: 09/30/23 19:03
*General Assessment Last Done: 09/30/23 19:16
*Neglect/Abuse Screening Last Done: 09/30/23 19:03
ED- Fall Risk Assessment Last Done: 09/30/23 19:17
*ED COVID-19 Vaccine History Last Done: 09/30/23 19:03
ED- Neurological Assessment Last Done: 09/30/23 19:17
ED-Psychological Assessment Last Done: 09/30/23 19:17
[2023-09-30] MEDS: NSS 1000 IV ×2 (19:42→20:51)
[2023-09-30 20:02] LABS: Venous Blood Gas B.E. -10.6 mmol/L (-4 to +4); Venous Blood Gas HCO3 14.3 mmol/L (22-27); Venous Blood Gas pCO2 29 mmHg (35-48); Venous Blood Gas pO2 178 mmHg (30-50)
[2023-09-30 20:04] LABS: % Basophils 0.6 % (0-2); % Immature Granulocytes 0.2 % (0-0.5); % Lymphocytes 6.3 % (20.5-51.1); % Monocytes 3.9 % (1.7-9.3); Absolute Basophils 0.1 10^3/uL (0-0.2); Absolute Lymphocytes 0.6 10^3/uL (1.2-3.4); Absolute Monocytes 0.4 10^3/uL (0.1-0.6); Absolute Neutrophils 8.1 10^3/uL (1.4-6.5); Hematocrit 41.1 % (39.0-52.0); Hemoglobin 14.1 g/dL (13.0-18.0); Mean Corp Hgb Conc. 34.3 g/dL (33.0-37.0); Mean Corpuscular Hgb 30.7 pg (27.0-31.0); Mean Corpuscular Volume 89.5 fL (80.0-94.0); Mean Platelet Volume 9.9 fL (7.4-10.4); Nucleated Red Blood Cells % 0 % (-); Platelet Count 177 10^3/uL (130-400); Red Blood Cell Count 4.59 10^6/uL (4.70-6.10); Red Cell Dist. Width 15.2 % (11.5-14.5)
[2023-09-30 20:23] LABS: ALT (SGPT) 30 U/L (0-50); AST (SGOT) 58 U/L (17-59); Albumin 5.2 g/dl (3.5-5.0); Alkaline Phosphatase 56 U/L (38-126); Blood Urea Nitrogen 14 mg/dl (9-20); Calcium 8.9 mg/dl (8.4-10.2); Carbon Dioxide 11 mmol/L (22-30); Estimated Creatinine Clearance 100 ml/min; Glucose 52 mg/dl (70-99); Lipase 93 U/L (23-300); Total Bilirubin 0.9 mg/dl (0.2-1.3); Total Protein 8.2 g/dl (6.3-8.2); eGFR > 60.00
[2023-09-30 20:26] LABS: Chloride 100 mmol/L (98-107); Potassium 4.2 mmol/L (3.5-5.1); Sodium 140 mmol/L (135-145)
[2023-09-30] MEDS: ZOFRAN 4 MG IV (20:32)
[2023-09-30 20:47] LABS: Alcohol 167 mg/dl
[2023-09-30 20:57] LABS: Glucose - Point of Care 64 mg/dl (70-99)
--- NOTE | 2023-09-30 21:16 | HPS.HSE ---
Addendum entered and electronically signed by Cory Villa MD 09/30/23 21:50:
Correction:
severe <del>GA</del> Anion gap metabolic acidosis of 29
Original Note:
Family Physician
-
Family Physician: Gerardo Sheets MD
Chief Complaint
-
Pending medical clearance for ETOH WDS
History of Present Illness
53M HX ETOH use disorder, HX ETOH ketoacidosis, metabolic acidosis wiht severe hypocarbia required HCO3 drip
HX seizure, multiple rehab visits seen by [facility] for IP detox but medically not clear 2/2 acute ETOH WDS with CIWA 18,
Tachycardic
Currently lab c/w metabolic acidosis wiht severe hypocarbia.
[facility] will re-eval tomorrow
Medical History
Past Medical History
Past Medical History: Reports Other
Additional Past Medical History:
alcohol use disorder, seizures, skin cancer status post resection, tachycardia
Past Surgical History: Reports None
Social History
Tobacco: Non-smoker
Alcohol: Other (last ETOH this afternoon )
Drug: None
Family History
Family History: Not pertinent
Allergies / Home Medications
Allergies reflects when Allergies were last updated in [facility].
Home Medications with original date entered in [facility]
Allergy/Medication List:
Allergies
Allergy/AdvReac Type Severity Reaction Status Date / Time
pollen extracts Allergy SEASONAL-NASAL Verified 09/30/23 19:05
SYMPTOMS
Home Medications
cholecalciferol (vitamin D3) 25 mcg (1,000 unit) chewable tablet 25 mcg PO DAILY Supplement 02/19/23
multivitamin 1 tab PO DAILY Supplement 06/04/23
vitamin B complex 1 cap PO DAILY Supplement 07/07/23
cetirizine 10 mg tablet 10 mg PO DAILY 09/17/23
metoprolol succinate 50 mg tablet,extended release 24 hr 50 mg PO BID Blood pressure 09/17/23
ferrous sulfate 325 mg (65 mg iron) tablet 325 mg PO DAILY 09/30/23
pantoprazole 40 mg tablet,delayed release 40 mg PO DAILY 09/30/23
Review of Systems
-
Constitutional: Reports No Symptoms
EENT: Reports No Symptoms
Respiratory: Reports No Symptoms
Cardiac: Reports Other (tachycardic )
Abdomen/GI: Reports No Symptoms
: Reports No Symptoms
Musculoskeletal: Reports No Symptoms
Skin: Reports No Symptoms
Neurological: Reports No Symptoms
Endocrine: Reports No Symptoms
Hematologic/Lymphatic: Reports No Symptoms
Psych: Reports Other
Physical Exam
Vital Signs
Vital Signs
Temp Pulse Resp BP Pulse Ox
98.2 F 124 16 124/91 99
09/30/23 19:03 09/30/23 19:03 09/30/23 19:03 09/30/23 19:03 09/30/23 19:03
Physical Exam
General: Well Developed (Flushed face ), No Apparent Distress, Comfortable and Other (norml attention span , not hypervigillant )
HEENT: NormoCephalic, Anicteric, Moist mucous membranes and Atraumatic
Respiratory: Clear; No Wheezes, Rales or Rhonchi
Cardiac: S1/S2, Regular Rhythm and Tachycardia
Breast: Deferred by me
GI: Soft, Non Tender and Non Distended
Rectal: Deferred by Provider
Genito-urinary: Deferred by me
Musculoskeletal: No Edema
Skin: Warm
Neuro: Awake, Alert, AO x 3 and Tremors (fine peripherl tremors of out stretched hands)
Psych: Calm; No Anxious
Laboratory Results
-
09/30/23 19:41
09/30/23 19:41
Laboratory Results
Total Bilirubin 0.9 mg/dl (0.2-1.3) 09/30/23 19:41
AST 58 U/L (17-59) 09/30/23 19:41
ALT 30 U/L (0-50) 09/30/23 19:41
Alkaline Phosphatase 56 U/L (38-126) 09/30/23 19:41
Lipase 93 U/L (23-300) 09/30/23 19:41
Data Reviewed
-
Lab Data: Labs Reviewed by me
Old Records: Reviewed
Impression/Plan
-
Reviewed VS: afebrile ST 120s RR 16
Data
unremarkable CBC
CO2 11
nl Cr
severe GA MA
BG 52
VBG
7.3 178
Last hospitalist admission: 08/28/23- 08/30/23 DC Dx
Generalized weakness secondary to alcohol ketoacidosis
Alcohol use disorder
Nausea vomiting with coffee-ground emesis
History of esophagitis
ASSESSMENT & PLAN
Acute ETOH WDS
CIWA 18
HX ETOH
- pending medical clearance for Ip detox
- CIWA protocol
- [facility] to f/u
- Psych consult
Severe AG MA
Severe hypocarbia. - VBG ph 7.31
HX ET OK ketoacidosis
- check LA
- check BHB
- start HCO3 gtt
- Trend CO2
Asymptomatic Hypoglycemia - poor POs and starvation ketosis due to ETOH abuse
- D50 x1
- Hypoglycemia protocol
Acute on chronic ST exacerbated by ETOH withdrawal plus metabolic aidosis
- cont. metoprolol
HX GERF
- on PPI
DVT Px: SCD
Full code
IMU
[2023-09-30] MEDS: DEXTROSE 50% SYRINGE 25 GRAMS IV (21:40)
[2023-09-30 21:52] LABS: Lactic Acid 6.1 mmol/L (0.7-2.0)
[2023-09-30 22:12] VITALS: BP 121/79
[2023-10-01] VITALS (20 sets, daily range): BP systolic 106–151; BP diastolic 69–97; BMI 25.0
[2023-10-01 00:17] LABS: Glucose - Point of Care 101 mg/dl (70-99)
[2023-10-01] MEDS: ATIVAN 1 MG IV ×2 (00:42→05:48)
[2023-10-01] MEDS: SODIUM BICARBONATE 1150 MEQ IV (00:42)
[2023-10-01] MEDS: THIAMINE INJECTION 200 MG IV ×3 (00:43→16:15)
[2023-10-01] MEDS: ZOFRAN 4 MG IV ×2 (01:02→19:03)
--- NOTE | 2023-10-01 02:00 | PTCARENOTE ---
Received pt from ER,tremulous,slightly diaphoretic,tachycardic,nauseous.ST electronic device monitor,oral temp 99.Pt is cooperative but anxious asking for Ativan and something for nausea.MSAS 10 upon admission,Ativan 1mg given.Pts physical assessment
preformed,pt denies pain,IVF initiated D5W 150 meq Na Bicarb at 60 mls hour.Close observation ongoing throughout the night.
[2023-10-01 03:06] LABS: Lactic Acid 2.1 mmol/L (0.7-2.0)
[2023-10-01 03:10] LABS: Glucose - Point of Care 84 mg/dl (70-99)
--- NOTE | 2023-10-01 04:36 | W.PN.UPDATE ---
Update Note
Progress Note Update
09/30/23 09/30/23 09/30/23
19:41 21:25 21:25
Lactic Acid 6.1
Alcohol, Quantitative 167
B-Hydroxybutyrate 4.00
[2023-10-01 05:54] LABS: % Basophils 0.5 % (0-2); % Eosinophils 0.3 % (0-6); % Immature Granulocytes 0.3 % (0-0.5); % Lymphocytes 22.9 % (20.5-51.1); % Monocytes 16.3 % (1.7-9.3); % Neutrophils 59.7 % (42.2-75.2); Absolute Lymphocytes 1.4 10^3/uL (1.2-3.4); Absolute Neutrophils 3.6 10^3/uL (1.4-6.5); Hematocrit 34.3 % (39.0-52.0); Mean Corpuscular Hgb 30.7 pg (27.0-31.0); Mean Corpuscular Volume 87.7 fL (80.0-94.0); Mean Platelet Volume 9.4 fL (7.4-10.4); Nucleated Red Blood Cells % 0 % (-); Platelet Count 158 10^3/uL (130-400); Red Blood Cell Count 3.91 10^6/uL (4.70-6.10); Red Cell Dist. Width 15.1 % (11.5-14.5); White Blood Cell Count 6.1 10^3/uL (4.8-10.8)
[2023-10-01] MEDS: DEXTROSE 50% SYRINGE 12.5 GRAMS IV (06:04)
[2023-10-01 06:13] LABS: Glucose - Point of Care 70 mg/dl (70-99)
[2023-10-01 06:17] LABS: Blood Urea Nitrogen 13 mg/dl (9-20); Calcium 8.4 mg/dl (8.4-10.2); Carbon Dioxide 23 mmol/L (22-30); Chloride 104 mmol/L (98-107); Estimated Creatinine Clearance > 125 ml/min; Glucose 77 mg/dl (70-99); Magnesium 1.8 mg/dl (1.6-2.3); Potassium 3.7 mmol/L (3.5-5.1); Sodium 137 mmol/L (135-145); eGFR > 60.00
[2023-10-01 06:22] LABS: Lactic Acid 0.7 mmol/L (0.7-2.0)
[2023-10-01 06:44] LABS: Glucose - Point of Care 113 mg/dl (70-99)
[2023-10-01] MEDS: TOPROL XL 50 MG PO ×2 (07:52→22:01)
[2023-10-01] MEDS: PROTONIX 40 MG PO (07:52)
[2023-10-01] MEDS: FEOSOL 325 MG PO (07:52)
[2023-10-01] MEDS: FOLVITE 1 MG PO (07:52)
[2023-10-01] MEDS: ATIVAN 1 MG PO ×4 (08:06→22:01)
--- NOTE | 2023-10-01 08:53 | W.PN.HOSP.TC ---
Today's Communication/Plan
-
see A/P
Assessment / Plan
Assessment / Plan
HPI: 53 yo M PMH ETOH use disorder, alcohol withdrawal seizure, multiple rehab visits for detox but medically not clear 2/2 acute ETOH withdrawal; p/w ETOH ketoacidosis/ metabolic acidosis.
A/P:
# Acute ETOH withdrawal
# Resolved AGMA.
# Resolved lactic acidosis
AGAP normalized, DC further bicarb drip
Cont MSAS protocol for withdrawal
[facility] to follow,�pending medical clearance for inpt detox
# Asymptomatic Hypoglycemia due to poor POs and�starvation ketosis from ETOH abuse
s/p D50 x1
Hypoglycemia resolved
restart regular diet
# sinus tachycardia due to ETOH withdrawal
monitor HR
cont LEAD TRAINER metoprolol with holding parameter
# GERD
PPI
DVT Px: SCD
Full code
DW RN
Anticipated Discharge: 24 - 48 hours
Subjective/Interval History
-
Date of Service: October 01, 2023
Objective Data
-
Labs:
Laboratory Results
10/01/23
05:42
WBC 6.1
Hgb 12.0 L
Hct 34.3 L
Plt Count 158
Sodium 137
Potassium 3.7
Chloride 104
Carbon Dioxide 23
BUN 13
Creatinine 0.7
Glucose 77
Calcium 8.4
Vital Signs:
Vital Signs
Temp Pulse Resp BP Pulse Ox
37.2 C 110 17 106/69 94
10/01/23 03:41 10/01/23 07:52 10/01/23 06:45 10/01/23 07:52 10/01/23 06:45
I&O
09/30/23 10/01/23 10/02/23
06:59 06:59 06:59
Intake Total 360 / 360
Balance 360 / 360
Review of Systems
-
All other systems: Reviewed and negative
Physical Exam
-
General: Well Developed, Well Nourished, No Apparent Distress and Comfortable
HEENT: Moist Mucous Membranes
Respiratory: Clear to Auscultation and Non Labored Respirations; Negative Accessory Resp Muscle Use
Cardiac: Regular Rhythm, S1/S2 and Tachycardic (mild)
GI: Soft, Nontender, Nondistended and Normal Bowel Sounds
Neuro: Awake
Psych: Calm and Intact Judgement/Insight; Negative Confused or Agitated
Data Reviewed
-
Labs: Labs Reviewed by me
[2023-10-01 10:32] LABS: Glucose - Point of Care 74 mg/dl (70-99)
--- NOTE | 2023-10-01 11:33 | CM ---
CM following re: discharge planning.
Reviewed pt's chart, met with pt. CM consulted to assist pt with substance abuse resources and treatment plan.
Pt is a 53 year old male, admitted with primary dx of concerns of alcohol withdrawal/Acute ETOH withdrawal.
Pt is well known to this CM from previous admissions. Pt reports he lives with spouse in a 2SH, 2 steps to enter, has 2 supportive children 17 and 18 year of age. 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 No DME, VN or SNF history.
Pt admitted to significant h/o alcohol abuse. Pt reports he has been drinking for many years. Drink of choice - vodka. Pt report he used to drink a gallon of vodka daily and now he reduced to 1-2 paints per day. Pt did mention that he feels that
it's still a lot and he always wanted to stop drinking. Pt reports he went to 4 different D&A rehabs in the past few years: [facility] twice, [facility], known to [facility]. Pt reports he knows ways to stop drinking but he
cannot do it. Emotional support with reassurance offered and provided during entire interview. Pt expressed his desire to meet with [facility] team and pt stated he has a strong desire to go to inpatient D&A rehab and [facility] preference [facility] ([facility]). Pt stated last drink of pint of vodka he had yesterday.
CM made a referral to [facility] this morning, spoke to [facility] CRS Lily and she is working to place the pt to [facility] inpatient residential D&A rehab with detox. Requested pt's clinical faxed to [facility] at [phone].
Pharmacy: [facility]
D/C plan: [facility] Inpatient residential D&A rehab with detox. [facility] following.
CM will follow to assist pt with discharge to [facility] inpatient residential D&A rehab with detox.
--- NOTE | 2023-10-01 13:41 | PTCARENOTE ---
Patient received in AM with assessment as noted. Continues sleeping intermittently, easily awakens and alert and oriented when awake. MSAS score maintained between 4-7 with points for hand tremors, intermittent nausea and elevated HR. PRN Ativan 1
mg PO given at 0800 and 1200. OOB to commode once during the morning and ambulates with an unsteady gait. Sinus tach on monitor. Afebrile. B/P's stable. Lungs CTA. Sao2 97% on room air. Regular diet started and tolerated well. No bowel movement
today. Voiding ad jose. Admitted as an IMU hold and is currently awaiting a bed in IMU. Patient currently in bed with side rails up, bed alarm on and telephone and call charles in reach. Will continue to monitor closely.
[2023-10-01 17:54] LABS: Glucose - Point of Care 105 mg/dl (70-99)
--- NOTE | 2023-10-01 21:00 | PTCARENOTE ---
Pt alert/oriented/cooperative. MSAS as documented. PO Ativan as ordered. Zofran given for nausea/vomiting earlier in shift. Afebrile, diaphoretic at times. NSR on monitor. BP stable. IV lines flushed/patent. Room air, clear. Regular diet as
tolerated. Voids in urinal. Will monitor.
[2023-10-02] VITALS (8 sets, daily range): BP systolic 102–132; BP diastolic 72–86
[2023-10-02] MEDS: THIAMINE INJECTION 200 MG IV ×2 (01:25→08:14)
[2023-10-02 04:07] LABS: Hematocrit 36.3 % (39.0-52.0); Hemoglobin 12.6 g/dL (13.0-18.0); Mean Corp Hgb Conc. 34.7 g/dL (33.0-37.0); Mean Corpuscular Hgb 30.4 pg (27.0-31.0); Mean Corpuscular Volume 87.7 fL (80.0-94.0); Mean Platelet Volume 9.9 fL (7.4-10.4); Platelet Count 159 10^3/uL (130-400); Red Blood Cell Count 4.14 10^6/uL (4.70-6.10); Red Cell Dist. Width 14.6 % (11.5-14.5); White Blood Cell Count 5.4 10^3/uL (4.8-10.8)
[2023-10-02 04:32] LABS: Blood Urea Nitrogen 13 mg/dl (9-20); Calcium 8.7 mg/dl (8.4-10.2); Carbon Dioxide 26 mmol/L (22-30); Chloride 100 mmol/L (98-107); Estimated Creatinine Clearance > 125 ml/min; Glucose 93 mg/dl (70-99); Potassium 3.7 mmol/L (3.5-5.1); Sodium 135 mmol/L (135-145); eGFR > 60.00
--- NOTE | 2023-10-02 07:42 | W.PN.HOSP.TC ---
Addendum entered and electronically signed by Daria Moss MD 10/02/23 17:57:
# Alcohol Abuse, likely with dependence
Addendum entered and electronically signed by Daria Moss MD 10/02/23 14:04:
total DC time 35 min
Original Note:
Today's Communication/Plan
-
DC to inpt rehab today
Assessment / Plan
Assessment / Plan
HPI: 53 yo M PMH ETOH use disorder, alcohol withdrawal seizure, multiple rehab visits for detox but medically not clear 2/2 acute ETOH withdrawal; p/w ETOH ketoacidosis/ metabolic acidosis.
A/P:
# ETOH withdrawal
# Resolved AGMA.
# Resolved lactic acidosis
AGAP normalized, off of bicarb drip
Cont MSAS protocol for withdrawal
[facility] following, pt has been accepted to inpt detox
# Asymptomatic Hypoglycemia due to poor POs and�starvation ketosis from ETOH abuse, resolved after D50 x1
Hypoglycemia resolved
restarted regular diet , pt tolerated well
# sinus tachycardia due to ETOH withdrawal, resolved
monitor HR
cont DEHYDROGENATION CONVERTER HELPER metoprolol (decrease from 50 to 25 mg BID) with holding parameter
# GERD
PPI
DVT Px: SCD
Full code
DW RN
Anticipated Discharge: Today
Subjective/Interval History
-
Date of Service: October 02, 2023
Objective Data
-
Labs:
Laboratory Results
10/02/23
03:47
WBC 5.4
Hgb 12.6 L
Hct 36.3 L
Plt Count 159
Sodium 135
Potassium 3.7
Chloride 100
Carbon Dioxide 26
BUN 13
Creatinine 0.7
Glucose 93
Calcium 8.7
Vital Signs:
Vital Signs
Temp Pulse Resp BP Pulse Ox
36.8 C 62 14 106/76 97
10/02/23 07:40 10/02/23 06:00 10/02/23 06:00 10/02/23 06:00 10/01/23 23:00
I&O
10/01/23 10/02/23 10/03/23
06:59 06:59 06:59
Intake Total 360 / 420 750 / 750
Output Total 300 / 300
Balance 360 / 420 450 / 450
Review of Systems
-
All other systems: Reviewed and negative
Physical Exam
-
General: Well Developed, Well Nourished, No Apparent Distress, Comfortable and Conversant
HEENT: Moist Mucous Membranes
Respiratory: Clear to Auscultation and Non Labored Respirations; Negative Accessory Resp Muscle Use
Cardiac: Regular Rhythm and S1/S2
GI: Soft, Nontender, Nondistended and Normal Bowel Sounds
Neuro: Awake
Psych: Calm and Intact Judgement/Insight; Negative Confused or Agitated
Data Reviewed
-
Labs: Labs Reviewed by me
--- NOTE | 2023-10-02 07:54 | PTCARENOTE ---
pt received this am- aox3, nsr to sinus tach on monitor, room air 100%. no complaints at this time, no tremors noted. pt ambulatory in room, pt with downgrade and discharge orders. pt aware of plan of care. verbalized understanding. all safety
precautions in place, call charles witin reach. POC discussed with dr. vilelda.
[2023-10-02 07:59] LABS: Glucose - Point of Care 78 mg/dl (70-99)
[2023-10-02] MEDS: FOLVITE 1 MG PO (08:14)
[2023-10-02] MEDS: PROTONIX 40 MG PO (08:14)
[2023-10-02] MEDS: TOPROL XL 25 MG PO (08:14)
[2023-10-02] MEDS: FEOSOL 325 MG PO (08:14)
[2023-10-02] MEDS: NSS (PRESERVATIVE FREE) 0.5 ML IV (08:23)
[2023-10-02] MEDS: ATIVAN 1 MG IV (08:23)
--- NOTE | 2023-10-02 10:57 | CM ---
CM following re: discharge planning.
Reviewed pt's chart, met with pt. Pt has passed interview with [facility] inpatient D&A rehab center staff and pt is accepted for admission today. AUREA spoke to [facility] union representative Shira and she confirmed that pt is accepted for
admission to [facility] today and they will schedule meat pickler time at 12:30 p.m. AUREA spoke to [employer] van driver helper Ronan and he confirmed that he will pick the pt up at 12:30 pm and he will call 15 minutes before he arrives.
Pt is aware, expressed his agreement and motivation to go to [facility] for inpatient residential D&A rehab with detox.
Discharge order is noted. Pt is aware.
D/C plan: Inpatient residential D&A rehab at [facility] with detox treatment. [employer] van driver helper will meat pickler at 12:30 p.m.
No other discharge needs identified.
--- NOTE | 2023-10-02 11:35 | PN.CDI ---
CDI
- -
CDI:
Physician Documentation Request
Admit Date: 09/30/23 21:47
Dear Doctor Ajay,
Patient admitted with ETOH withdrawal. Pt admitted for this multiple times.
Please provide further specificity:
Please specify the pattern of use, include all that apply:
- Use, with or without abuse and/or dependence
- Abuse with or without dependence
- Dependence
Use of terms such as suspected, likely, concern for, or probable (associated with a specific diagnosis that is being evaluated, monitored, or treated as if it exists) are acceptable and can be coded in the inpatient setting, when documented at the
time of discharge.
Thank you,
Norma Nevarez RN, BSN
CDI Specialist
tiger text
Please use your independent medical judgment in providing your response.
--- NOTE | 2023-10-02 12:39 | PTCARENOTE ---
pt given dischrage instructions- verbalized understanding. ivs removed, pressure dressings applied. sites c/d/i. wheelchaired down.pt sent with all belongings
--- NOTE | 2023-10-02 13:39 | W.DCSUMMARY ---
Discharge Summary
Discharge Data
Date of Admission: 09/30/23
Date of Discharge: 10/02/23
-
Pending Results: No
Hospital Course
Principal Diagnosis:
Alcohol withdrawal on admission
Resolved anion gap metabolic acidosis, resolved lactic acidosis
Asymptomatic Hypoglycemia due to poor oral intake and�starvation ketosis, resolved
Resolved sinus tachycardia
Chronic Diagnoses:�
Alcohol use disorder
Gastroesophageal reflux disease
Consultations:�
None
Procedures:�
None
Clinical course:�
This is a 53 year old male with past medical history as stated above, who presented with alcohol withdrawal.
Problem 1:
Alcohol withdrawal, associated with anion gap metabolic acidosis (resolved) and lactic acidosis (resolved).
The patient did receive bicarb drip while in the hospital which helped improve/resolve his metabolic acidosis.
He was covered with MSAS protocol while in the hospital.
He was discharged to inpatient detox.
Problem 2:
Asymptomatic hypoglycemia due to poor oral intake and�starvation ketosis, resolved after D50 x1.
He was restarted regular diet which he tolerated well
Problem 3:
Sinus tachycardia due to ETOH withdrawal, this has resolved.
His prior to admission metoprolol was actually decreased from 50 twice daily to 25 mg twice daily prior to discharge due to borderline blood pressure (which also resolved).
As for the rest of his medical problems, they were stable during his hospital stay.
Discharge Plan
-
Patient Disposition: Other
Discharge Diagnosis/Procedures: Alcohol withdrawal; Resolved anion gap metabolic acidosis; Resolved lactic acidosis
Condition: Good
Diet: As tolerated
Activity: As tolerated
Driving Restrictions: Not until seen by your Dr
Referrals:
Gerardo Sheets MD [Family Provider] - in less than 1 week
Additional Discharge Medication Instructions: Your metoprolol was decreased from 50 to 25 mg twice daily
Prescriptions:
New
metoprolol succinate 50 mg Tablet Extended Release 24 Hr
25 mg PO BID Qty: 60 0RF
Continued
cholecalciferol (vitamin D3) 25 mcg (1,000 unit) Tablet,Chewable
25 mcg PO DAILY
multivitamin Tablet
1 tab PO DAILY
vitamin B complex Capsule
1 cap PO DAILY
cetirizine 10 mg Tablet
10 mg PO DAILY
ferrous sulfate 325 mg (65 mg iron) Tablet
325 mg PO DAILY
pantoprazole 40 mg tablet,delayed release (DR/EC)
40 mg PO DAILY
Discontinued
metoprolol succinate 50 mg tablet extended release 24 hr
50 mg PO BID
Discharge Orders:
Discharge Patient (As Directed); Ordered 10/02/23
Ordered By: Daria Moss
== END 2023-10-02 13:50 | disposition other institution (70) | DRG 897 ==
LOC: ICU 21:47
PROVIDERS: Nurse Practitioner Family; ADMITTING PHYSICIAN Internal Medicine; ATTENDING PHYSICIAN Internal Medicine; EMERGENCY PHYSICIAN Emergency Medicine; FAMILY PHYSICIAN Family Medicine
DX: F10.139 Alcohol abuse with withdrawal, unspecified (principal); E87.29 Other acidosis; E16.2 Hypoglycemia, unspecified; K21.9 Gastro-esophageal reflux disease without esophagitis; F10.20 Alcohol dependence, uncomplicated
CPT/HCPCS: 80048; 80053; 82010; 82077; 82805; 82962; 83605; 83690; 83735; 85025; 85027; 96361; 96374; 99284

== ENCOUNTER 2023-12-23 19:13 | Emergency (ER) | payer BC, SELFPAY ==
[2023-12-23 19:14] VITALS: BP 123/77
--- NOTE | 2023-12-23 19:39 | ED.GENMED ---
History of Present Illness
General
Chief Complaint: Alcohol Problem
Source: patient
Exam Limitations: none
Time Seen by Provider: 12/23/23 19:29
Nursing documentation reviewed up to this point in time: agreed with
Travel History
Have you had any contact with someone who has COVID-19?: No
Do you have any symptoms of coronavirus? Fever > 100 degrees, chills, cough, shortness of breath, sore throat, loss of taste or smell, muscle aches, or headache?: No
History of Present Illness
History of Present Illness:
53-year-old male with a past medical history as documented notable for long history of alcohol abuse and history of DTs in the setting of withdrawal who presents to the emergency room seeking help with detox/rehab. Patient says 'I have to make a
change.' He says that he wishes to stop drinking but knows that he is going to withdrawal and believes he is already in the early stages of alcohol withdrawal and so he came to the emergency room for help. He says that his last drink was this
morning. He says that he only had a few sips of vodka 'so that I would not have bad withdrawal.' He said he typically drinks about 750 mL bottle of vodka daily. Right now he says that he feels slightly anxious and tremulous and has mild nausea as
well as a mild headache. He denies any other symptoms such as vomiting, abdominal cramping, sweating, hallucinations, restlessness.
Past History
Past History
ED Past Medical History: Cancer (Skin CA), Seizures (From alcohol withdraw), Psychiatric (Anxiety) and Other (Alcohol abuse, kidney stones, GI bleed, Gastritis, )
ED Past Surgical History: Other (Oral surgery)
Patient has exhibited threatening behavior?: No
PSI?: No
Social History
Tobacco: Non-smoker
Alcohol: Chronic alcoholic
Drug: None
Personal:
Living: with family
Family History
Family History: Negative Early CAD
Review of Systems
Review of Systems
All Other Systems: ROS reviewed and negative except as documented in HPI and ROS
Constitutional: Denies fever
Respiratory: Denies cough or trouble breathing
Cardiac: Denies chest pain or palpitations
ABD/GI: Reports nausea; Denies abdominal pain, vomiting or diarrhea
: Denies flank pain
Musculoskeletal: Denies neck pain or back pain
Neurological: Reports dizzy and headache; Denies weakness or numbness
Psychiatric: Reports anxiety; Denies suicidal or hallucinations
Phy Exam
Physical Exam
Physical Exam:
General: Awake, alert, oriented x3; no acute distress
Head: Normocephalic, atraumatic
Eyes: Conjunctiva normal, EOMI, pupils equal round reactive to light bilaterally
Throat: Airway intact, handling secretions, slightly dry mucous membrane
Neck: Trachea midline, supple without meningismus
Lungs: Clear to auscultation bilaterally, no wheezing, rales, rhonchi
Heart: Tachycardia with regular rhythm, no murmurs, gallops, or rubs
Abd: Soft, non distended, nontender
Neuro: Cranial nerves grossly intact, speech fluid, no gross motor or sensory deficits; is a very slight tactile tremor
Skin: Dry without diaphoresis, no rash
Extremities: No edema in extremities, equal pulses in all extremities
Scores
Heart Failure Risk
Heart Failure Risk Score: Not Applicable
Heart Score for Chest Pain Patients
STEMI patient?: Not applicable
Withdrawal Assessment of Alcohol
Withdrawal Assessment Completed?: Yes
Nausea and Vomiting: Mild nausea with no vomiting
Tactile Disturbances: None
Tremor: Not visible, but can be felt fingertip to fingertip
Auditory Disturbances: Not present
Paroxysmal Sweats: No sweat visible
Visual Disturbances: Not present
Anxiety: Mild anxiety
Headache, Fullness in Head: Very mild
Agitation: Normal activity
Orientation and clouding of sensorium: Oriented and can do serial additions
Total CIWA Score: 4
Alcohol Withdrawal Medication Recommendation: Equal to MSAS Score 0-4. Monitor & re-assess q2hrs, NO MEDICATION NEEDED
Course
Orders/Labs/Results
Orders:
Orders
12/23/23 19:17
EKG [Electrocardiogram (*1)] Urgent
Reason for Study: Tachycardia
EKG- Treatment ONCE
12/23/23 19:30
Drug Screen, Urine [Urine Drug Abuse Screen] Urgent
Urinalysis Reflex To Culture Urgent
12/23/23 19:39
0.9% Sodium Chloride 1000 ml [Nss] 1,000 ml IV BOLUS
12/23/23 19:41
Alcohol Urgent
Complete Blood Count/With Diff Urgent
Comprehensive Metabolic Panel Urgent
Lipase Urgent
12/23/23 19:49
Ondansetron Injectable [Zofran] 4 mg .ROUTE .STK-MED ONE
12/23/23 20:32
Ondansetron Orally Disint [Zofran Odt (Orally Disintegrating)] 4 mg .ROUTE .STK-MED ONE
12/23/23 20:40
Ondansetron Orally Disint [Zofran Odt (Orally Disintegrating)] 4 mg PO NOW STA
12/23/23 20:48
Ondansetron Injectable [Zofran] 4 mg IV NOW STA
12/23/23 21:19
Dextrose 50%-Water [Dextrose 50% Syringe] 25 grams .ROUTE .STK-MED ONE
12/23/23 21:21
Dextrose 50%-Water [Dextrose 50% Syringe] 25 grams IV NOW STA
Abnormal Lab Results
12/23/23 12/23/23 12/23/23
19:41 20:35 20:51
RBC 4.65 L 10^6/uL
(4.70-6.10)
Carbon Dioxide 15 L mmol/L
(22-30)
Glucose 54 L* mg/dl
(70-99)
POC Glucose 52 L* mg/dl 53 L* mg/dl
(70-99) (70-99)
12/23/23 12/23/23
21:13 22:08
RBC
Carbon Dioxide
Glucose
POC Glucose 60 L mg/dl 155 H mg/dl
(70-99) (70-99)
12/23/23 19:41
12/23/23 19:41
Vital Signs
Pulse: 118
Initial and Last Documented VS:
Initial Vital Signs
Temp Pulse Resp BP Pulse Ox
37.2 C 143 19 123/77 95
12/23/23 19:14 12/23/23 19:14 12/23/23 19:14 12/23/23 19:14 12/23/23 19:14
Last Documented Vital Signs
Temp Pulse Resp BP Pulse Ox
37.2 C 143 19 123/77 95
12/23/23 19:14 12/23/23 19:14 12/23/23 19:14 12/23/23 19:14 12/23/23 19:14
MDM/Problems Addressed
Differential Diagnosis Includes:
Alcohol withdrawal
MDM/Problems Addressed:
53-year-old male presents to the emergency room seeking help with detox/rehab�he has a long history of alcohol abuse and has had significant withdrawal symptoms and DTs in the past and wishes to stop drinking. Last drink earlier today he thinks he
is having early signs of withdrawal. MSAS score as documented�in my judgment no indication for Ativan at this point as if he is having withdrawal it is very mild. Will place an IV check labs including a CBC and a CMP, lipase. Will check alcohol
level and UDS. Will check an EKG given tachycardia. Provide fluids for hydration. Discussed with [facility] to assess for detox/rehab.
Labs reviewed: CBC unremarkable, CMP shows mild metabolic acidosis suspect likely starvation ketosis as he has concurrent hypoglycemia as well. We gave him 1 amp of D50 as well as food and drink by mouth. Will continue to monitor blood glucose.
His alcohol level is 289.
Blood glucose is normalized with above measures. Continue to monitor.
[facility] able to arrange for transport to detox facility aditi continue to monitor for short period time but I think he is stable for discharge to detox facility; while he does have some very mild signs of withdrawal his MSAS is low enough (and
ETOH high enough) that I think he can be transported to detox for further treatment there. Patient is very happy with this plan.
Chronic conditions affecting care:
Alcohol abuse
*Pulse Oximetry
Patient hypoxic: no
*EKG
Interpreted by ED Provider?: Yes
Heart Rate: 118
Rate: tachycardiac
Rhythm: sinus and sinus tachycardia
[place]: normal axis
Interval: normal interval
QRS Pattern: normal QRS
Ischemia: no ischemia
*Critical Care Note
Total Time (30-74mins, 75-104mins- exclusive of procedures): Not Applicable
Data Reviewed
Review of Other/Old Records Reveals: Labs, Records and Discharge Summary
Source: patient and records
Patient Management
Discussion with other providers: Other (Discussed with [facility])
ED Attending Note
-
Portions of this chart may have been created with voice recognition software.� Occasional wrong word or��sound alike� substitutions may have occurred due to the inherent limitations of voice recognition software.
Discharge Plan
Departure
Patient Disposition: Home (Routine Discharge)
Date of Disposition: 12/23/23
Time of Disposition: 22:38
Patient with high blood pressure during this ER visit?: No
Discharge Problem:
Alcohol abuse with withdrawal
Instructions: Alcohol Use Disorder (DC)
Prescriptions:
No Action
cholecalciferol (vitamin D3) 25 mcg (1,000 unit) Tablet,Chewable
25 mcg PO DAILY
multivitamin Tablet
1 tab PO DAILY
vitamin B complex Capsule
1 cap PO DAILY
cetirizine 10 mg Tablet
10 mg PO DAILY
ferrous sulfate 325 mg (65 mg iron) Tablet
325 mg PO DAILY
pantoprazole 40 mg tablet,delayed release (DR/EC)
40 mg PO DAILY
metoprolol succinate 50 mg Tablet Extended Release 24 Hr
25 mg PO BID Qty: 60 0RF
Referrals:
Gerardo Sheets MD [Family Provider] -
Activity Restrictions/Additional Instructions:
You are being discharged to a detox facility for further treatment.
Interventions
Interventions:
*Risk Screen - Suicide Last Done: 12/23/23 19:14
*General Assessment Last Done: 12/23/23 19:14
*Neglect/Abuse Screening Last Done: 12/23/23 19:14
*ED COVID-19 Vaccine History Last Done: 12/23/23 21:28
ED- Neurological Assessment Last Done: 12/23/23 19:59
ED-Psychological Assessment Last Done: 12/23/23 19:59
Discharge Date and Time
Print Language: MALAWIAN
[2023-12-23 19:57] LABS: % Basophils 1.4 % (0-2); % Eosinophils 0.5 % (0-6); % Immature Granulocytes 0.5 % (0-0.5); % Lymphocytes 40.1 % (20.5-51.1); % Monocytes 6.4 % (1.7-9.3); % Neutrophils 51.1 % (42.2-75.2); Absolute Basophils 0.1 10^3/uL (0-0.2); Absolute Lymphocytes 3.1 10^3/uL (1.2-3.4); Absolute Monocytes 0.5 10^3/uL (0.1-0.6); Hematocrit 39.8 % (39.0-52.0); Mean Corp Hgb Conc. 35.2 g/dL (33.0-37.0); Mean Corpuscular Hgb 30.1 pg (27.0-31.0); Mean Corpuscular Volume 85.6 fL (80.0-94.0); Mean Platelet Volume 9.2 fL (7.4-10.4); Nucleated Red Blood Cells % 0 % (-); Platelet Count 231 10^3/uL (130-400); Red Blood Cell Count 4.65 10^6/uL (4.70-6.10); Red Cell Dist. Width 14.5 % (11.5-14.5); White Blood Cell Count 7.8 10^3/uL (4.8-10.8)
[2023-12-23 20:24] LABS: ALT (SGPT) 30 U/L (0-50); AST (SGOT) 52 U/L (17-59); Albumin 4.8 g/dl (3.5-5.0); Alcohol 289 mg/dl; Alkaline Phosphatase 60 U/L (38-126); Blood Urea Nitrogen 10 mg/dl (9-20); Calcium 8.9 mg/dl (8.4-10.2); Carbon Dioxide 15 mmol/L (22-30); Chloride 105 mmol/L (98-107); Glucose 54 mg/dl (70-99); Lipase 118 U/L (23-300); Potassium 3.5 mmol/L (3.5-5.1); Sodium 144 mmol/L (135-145); Total Bilirubin 0.9 mg/dl (0.2-1.3); Total Protein 7.6 g/dl (6.3-8.2); eGFR > 60.00
[2023-12-23 20:36] LABS: Glucose - Point of Care 52 mg/dl (70-99)
[2023-12-23] MEDS: ZOFRAN ODT (ORALLY DISINTEGRATING) 4 MG PO (20:40)
[2023-12-23 20:41] VITALS: BMI 23.7
[2023-12-23 20:52] LABS: Glucose - Point of Care 53 mg/dl (70-99)
[2023-12-23] MEDS: ZOFRAN 4 MG IV (21:07)
[2023-12-23] MEDS: NSS 1000 IV (21:08)
[2023-12-23 21:15] LABS: Glucose - Point of Care 60 mg/dl (70-99)
[2023-12-23] MEDS: DEXTROSE 50% SYRINGE 25 GRAMS IV (21:21)
[2023-12-23 22:10] LABS: Glucose - Point of Care 155 mg/dl (70-99)
[2023-12-23 22:47] LABS: Glucose - Point of Care 130 mg/dl (70-99)
== END 2023-12-23 22:59 | disposition home or self-care (01) ==
LOC: EMR 19:13
PROVIDERS: EMERGENCY PHYSICIAN Emergency Medicine; FAMILY PHYSICIAN Family Medicine
DX: F10.139 Alcohol abuse with withdrawal, unspecified (principal); Z85.828 Personal history of other malignant neoplasm of skin; Z87.19 Personal history of other diseases of the digestive system; Z87.442 Personal history of urinary calculi
CPT/HCPCS: 99283; 80053; 82077; 82962; 83690; 85025; 93005

== ENCOUNTER → 2024-05-26 06:23 | Day surgery (SDC) | payer BC, SELFPAY | LOC: GI 06:23 | PROVIDERS: ATTENDING PHYSICIAN Internal Medicine Gastroenterology | DX: Z12.11 Encounter for screening for malignant neoplasm of colon (principal); K64.8 Other hemorrhoids; K57.50 Diverticulosis of both small and large intestine without perforation or abscess without bleeding; K44.9 Diaphragmatic hernia without obstruction or gangrene; K31.89 Other diseases of stomach and duodenum; K22.89 Other specified disease of esophagus; D12.4 Benign neoplasm of descending colon; K21.00 Gastro-esophageal reflux disease with esophagitis, without bleeding; Q40.8 Other specified congenital malformations of upper alimentary tract | CPT/HCPCS: 45380; 43239; 88305 ==

== ENCOUNTER 2025-06-20 06:36 | Day surgery (SDC) | payer BC, SELFPAY | END 2025-06-20 11:52 | disposition home or self-care (01) | LOC: GI 06:36 | PROVIDERS: ATTENDING PHYSICIAN Internal Medicine Gastroenterology | DX: K22.70 Barrett's esophagus without dysplasia (principal); K44.9 Diaphragmatic hernia without obstruction or gangrene; K20.80 Other esophagitis without bleeding | CPT/HCPCS: 43239; 88305 ==